=== PATIENT | female | born 1950 | race Caucasian/White ===

== ENCOUNTER 2016-10-08 09:16 | Inpatient (IN) | payer OTHER ==
[2016-09-25 12:39] VITALS: BMI 28.0
--- NOTE | 2016-09-25 13:19 | PAT Medication Instructions ---
Service Date Sep 25, 2016. Current Home Medication List Aspirin (Aspirin Ec), 325 MG PO QAM Cyanocobalamin (Vitamin B-12 Inj), 1 ML IM MONTHLY Escitalopram (Lexapro), 10 MG PO QAM Fluticasone Prop/Salmeterol (Advair Diskus 250/50 60 Dose), 1 PUFF INH BID Hydrocodone/Acetaminophen 5MG/325MG ([place] 5MG/325MG), 1 TABLET PO PRN PRN for Pain Levothyroxine Sodium (Levothyroxine Sodium), 1 TAB PO QAM Naproxen (Naprosyn), 500 MG PO BID Pantoprazole (Protonix), 40 MG PO QAM Simvastatin (Zocor), 40 MG PO QPM Zolpidem Tartrate (Ambien), 10 MG PO HS PRN for Sleep Medication Instructions For Your Scheduled Surgery Cyanocobalamin (Vitamin B-12 Inj), 1 ML IM MONTHLY (continue as directed) Aspirin (Aspirin Ec), 325 MG PO QAM (check with surgeon/family doctor for instructions) Naproxen (Naprosyn), 500 MG PO BID (check with surgeon for instructions) - Take the following medications the morning of surgery with a sip of water: Pantoprazole (Protonix), 40 MG PO QAM Levothyroxine Sodium (Levothyroxine Sodium), 1 TAB PO QAM Fluticasone Prop/Salmeterol (Advair Diskus 250/50 60 Dose), 1 PUFF INH BID Escitalopram (Lexapro), 10 MG PO QAM Hydrocodone/Acetaminophen 5MG/325MG ([place] 5MG/325MG), 1 TABLET PO PRN PRN for Pain (okay to take up to take up to 4 hours prior to surgery if needed) - Take the following medications as scheduled the night before surgery: Zolpidem Tartrate (Ambien), 10 MG PO HS PRN for Sleep (if needed) Simvastatin (Zocor), 40 MG PO QPM Fluticasone Prop/Salmeterol (Advair Diskus 250/50 60 Dose), 1 PUFF INH BID Hydrocodone/Acetaminophen 5MG/325MG ([place] 5MG/325MG), 1 TABLET PO PRN PRN for Pain (if needed) If you have any questions please call us at [phone] or [phone] or [phone]
[2016-09-25 13:55] LABS: BASO % 0.5 %; BASO ABS # 0.04 K/uL (0-0.2); COMPLETE YES; EOS % 2.1 %; HEMATOCRIT 42.3 % (37-47); IG% 0.1 %; LYMPH % 21.2 %; LYMPH ABS # 1.84 K/uL (1.2-3.4); MEAN CELL VOLUME 91.4 fL (80-100); MEAN CORPUSCULAR HEMOGLOBIN 29.6 pg (25-34); MEAN CORPUSCULAR HGB CONC 32.4 g/dl (32-36); MEAN PLATELET VOLUME 9.4 fL (7.4-10.4); MONO % 6.7 %; NEUT % 69.4 %; PLATELET COUNT 338 K/uL (130-400); RED BLOOD COUNT 4.63 M/uL (4.2-5.4); WHITE BLOOD COUNT 8.69 K/uL (4.8-10.8)
[2016-09-25 14:03] LABS: BUN/CREATININE RATIO 14.5 (10-20); CALCIUM 9.3 mg/dl (8.5-10.1); CREATININE 0.84 mg/dl (0.60-1.20); POTASSIUM 4.2 mmol/L (3.5-5.1)
--- NOTE | 2016-09-25 14:05 | DIAGNOSTIC IMAGING REPORT ---
CHEST 2 VIEWS ROUTINE CLINICAL HISTORY: Preoperative evaluation. COMPARISON STUDY: No previous studies for comparison. FINDINGS: Anterior cervical spine fusion is incidentally noted. Lung volumes are normal. There is no consolidation. There is no evidence of pulmonary edema. Cardiac size is normal. Mediastinal contours are normal. IMPRESSION: No acute cardiopulmonary findings. Electronically signed by: Gt Neri M.D. 09/25/2016 2:04 PM Dictated Date/Time: 09/25/2016 2:03 PM
[2016-09-25 14:11] LABS: URINE APPEARANCE CLEAR (CLEAR); URINE BILIRUBIN NEG (NEG); URINE COLOR YELLOW; URINE NITRITE NEG (NEG); URINE PH 5.5 (4.5-7.5); URINE SPECIFIC GRAVITY 1.008 (1.000-1.030); UROBILINOGEN NEG (NEG)
[2016-09-25 14:19] LABS: MANUAL MICROSCOPIC REQUIRED? NO; REVIEW REQ? NO
[2016-10-08] VITALS (10 sets, daily range): BP systolic 110–140; BP diastolic 54–70; PULSE 61–83; TEMP 36.5–37.1; O2SAT 84–100; Ht 160 cm; Wt 73.7 kg
[~2016-10-08] VITALS: Ht 160 cm; Wt 73.7 kg
[~2016-10-08 09:16] MED LIST: ADVIN25/60 INH; ASPI325T39 PO; ATROPINE SULFATE 0.1 MG/ML 5ML SYR IV PRN; CLINDAMYCIN 600 MG/54 ML D5W 54 ML IV SCH; CYAN3INJ IM; CeleBREX 200 MG CAP PO SCH; ESCI10TA17 PO; EpHEDrine SULFATE INJ 50 MG/ML AMP IV PRN; FENTANYL CITRATE INJ 50 MCG/1 ML 2 ML VIAL IV PRN; HYDR-5688 PO; HYDROmorphone INJ 1 MG/ML SYR IV PRN; LABETALOL HCL IV 5 MG/ML 20ML IV PRN; LACTATED RINGER'S 1000ML IV SCH; LEVO100T7 PO; MEPERIDINE HCL 25 MG/ML CARP IV PRN; NAPR-1169 PO; ONDANSETRON INJ 2 MG/ML 2 ML VIAL IV PRN; PANT40TA PO; PREGABALIN 75 MG CAP PO SCH; SIMV40TA2 PO; ZOLP10TA PO
[2016-10-08] MEDS ORDERED: FENTANYL CITRATE INJ 50 MCG/1 ML 2 ML VIAL ONE ×3 (11:26→14:26)
[2016-10-08] MEDS ORDERED: MIDAZOLAM HCL 1 MG/ML 2ML VIAL ONE (11:26)
[2016-10-08] MEDS ORDERED: HEPARIN SOD (PORCINE) 1000 UNIT/ML 10 ML VIAL ONE (11:49)
[2016-10-08] MEDS ORDERED: THROMBIN FOR SOLN 20000 UNIT KIT ONE (11:49)
[2016-10-08] MEDS ORDERED: BACITRACIN 50000 UNIT VIAL ONE (11:49)
[2016-10-08] MEDS ORDERED: THROMBIN 5000 UNITS KIT ONE (11:49)
[2016-10-08] MEDS ORDERED: BUPIVACAINE/EPINEPHRINE 0.25% 1:200,000 30 ML VIAL ONE (11:50)
--- NOTE | 2016-10-08 11:52 | History and Physical ---
History & Physical Date Oct 08, 2016. Chief Complaint LBP and bilateral leg pain History of Present Illness The patient is a 66 year old female with complaints of above who failed outpatient management including PT and ESIs. symptoms are chronic and unremitting. Pain is 8/10. Aggravated by daily activities, relieved by sitting. positive shopping cart sign. reports numbness in RLE, no weakness. no incontinence.MRI shows L3-5 spinal stenosis and mobile L4-5 degenerative spondylolisthesis. cleared by pcp Past Medical/Surgical History Medical Problems: (1) DDD (degenerative disc disease) 2. arthritis 3. depression 4. GERD 5. gout 6. COPD 7. duputryens contracture 8. hypothryoid 9. hx of skin CA 10. cervical fusion 11. B tubal ligation 12. CTR 13. hyster 14. thyroidectomy 15. knee surgery Additional History Hepatic Disease: No Endocrine Disorder: Yes Kidney Disease: No Hypertension: No Heart Disease: No Bleeding Tendencies: No Infectious Diseases: No Allergies Coded Allergies: Penicillins (Verified Allergy, Severe, DIFFICULTY BREATHING, RASH, 10/08/16 ) anything with cillin is a problem per pt Home Medications Scheduled Aspirin (Aspirin Ec), 325 MG PO QAM Cyanocobalamin (Vitamin B-12 Inj), 1 ML IM MONTHLY Escitalopram (Lexapro), 10 MG PO QAM Fluticasone Prop/Salmeterol (Advair Diskus 250/50 60 Dose), 1 PUFF INH BID Levothyroxine Sodium (Levothyroxine Sodium), 1 TAB PO QAM Naproxen (Naprosyn), 500 MG PO BID Pantoprazole (Protonix), 40 MG PO QAM Simvastatin (Zocor), 40 MG PO QPM Scheduled PRN Hydrocodone/Acetaminophen 5MG/325MG ([place] 5MG/325MG), 1 TABLET PO PRN PRN for Pain Zolpidem Tartrate (Ambien), 10 MG PO HS PRN for Sleep Physical Examination Skin: warm/dry Eyes: normal inspection, EOMI, sclerae normal Head: normocephalic, atraumatic Neck: supple, trachea midline Respiratory/Chest: lungs clear, no respiratory distress Cardiovascular: regular rate, rhythm Back: normal inspection Extremities: normal inspection, normal range of motion Neurologic/Psych: no motor/sensory deficits, alert, normal reflexes, oriented x 3 Diagnosis L3-5 stenosis with spondylolisthesis and hx smoking Plan of Treatment L3-5 decomp/PSF with smoking cessation counseled
[2016-10-08] MEDS ORDERED: HYDROmorphone INJ 2 MG/ML SYR/VIAL ONE ×2 (12:35→13:38)
[2016-10-08] MEDS ORDERED: PROPOFOL IV EMULSION 10 MG/ML 20 ML VIAL IV ONE (12:43)
[2016-10-08] MEDS ORDERED: DEXAMETHASONE SOD INJ 4 MG/ML VIAL ONE (12:43)
[2016-10-08] MEDS ORDERED: ROCURONIUM BROMIDE 10 MG/ML 5 ML VIAL ONE (12:43)
[2016-10-08] MEDS ORDERED: LIDOCAINE HCL 2% 2 ML VIAL (20MG/ML) ONE (12:43)
[2016-10-08] MEDS ORDERED: ONDANSETRON INJ 2 MG/ML 2 ML VIAL ONE ×2 (13:35→13:39)
[2016-10-08] MEDS ORDERED: KETOROLAC TROMETHAMINE 30 MG/ML VIAL ONE (13:39)
[2016-10-08] MEDS ORDERED: GLYCOPYRROLATE INJ 0.2 MG/ML VIAL ONE (13:39)
[2016-10-08] MEDS ORDERED: NEOSTIGMINE METHYLSULFATE 1 MG/ML 10ML VIAL ONE (13:39)
[2016-10-08] MEDS ORDERED: FLOSEAL HEMOSTATIC MATRIX 10ML TOP ONE (13:46)
[2016-10-08] MEDS ORDERED: ESMOLOL HCL 10 MG/ML 10 ML VIAL ONE (13:47)
--- NOTE | 2016-10-08 13:53 | [facility] Post Operative Brief Note ---
Immediate Operative Summary Operative Date Oct 08, 2016. Pre-Operative Diagnosis SPINAL STENOSIS Post-Operative Diagnosis SAME PREOP Procedure(s) Performed L3-L5 DECOMPRESSION, INSTRUMENTED FUSION, INTERBODY FUSION L4-L5 USE OF ARTERIOCYTE AND INFUSE Surgeon DR. Mere RAMÍREZ Licensed Appraiser Surgeon(s) William FRANCE PAC Estimated Blood Loss 175ML Findings diuct Specimens NONE
--- NOTE | 2016-10-08 14:14 | DIAGNOSTIC IMAGING REPORT ---
LUMBAR SPINE 2 OR 3 VIEW HISTORY:66 yearsFemaleL3-L5 DECOMPRESSION/FUSION/INTERBODY COMPARISON: None available. TECHNIQUE: Prone and cross table lateral spot fluoroscopic images of the lumbar spine were obtained utilizing 7.3 seconds of fluoroscopy time. FINDINGS: Interpretation of the films was provided after the procedure was concluded. Prior laminectomy with interbody rods and screw fixation at the L3-L5 levels. Discectomy changes are noted at L4-L5. Alignment appears satisfactory. IMPRESSION: Prior laminectomy with interbody rods and screw fixation at L3-L5. The above report was generated using voice recognition software. It may contain grammatical, syntax or spelling errors. Electronically signed by: Baljit Putnam M.D. 10/08/2016 2:12 PM Dictated Date/Time: 10/08/2016 2:10 PM
--- NOTE | 2016-10-08 14:15 | [facility] Operative Report ---
Operative Report Operative Date Oct 08, 2016. Pre-Operative Diagnosis SPINAL STENOSIS Post-Operative Diagnosis SAME PREOP Procedure(s) Performed #1 L3 and L4 laminectomies with bilateral medial facetectomies #2 L3-L4 and L5 segmental bilateral pedicle screw instrumentation #3 L3 to 5 posterior lateral fusion with infuse BMP on a collagen sponge morcellized local bone bone marrow aspirate and tricalcium phosphate #4 left L4 5 transforaminal lumbar interbody fusion with K2 M titanium interbody spacer #5 right iliac crest bone marrow aspiration and stem cell concentration application of bone graft Surgeon DR. Mere RAMÍREZ Floor Press Operator Surgeon(s) William FRANCE PAC Estimated Blood Loss 175ML Findings dict Specimens NONE Complication(s) None Description of Procedure After identification of the patient and the operative level they were brought to the OR where they underwent induction of general anesthesia. They were positioned prone on a Jens spine table with all bony prominence well-padded. Care was taken to avoid pressure on the periorbital area. The lumbosacral area was sterilely prepped and draped in the usual fashion. Antibiotics were administered, a time-out was performed, level was confirmed, and skin incision was with localized lateral fluoroscopy and a spinal needle. The skin was infiltrated with half percent Marcaine with epinephrine. I then made skin incision from the spinous process of [L2 to L5]. The dorsal fascia was incised and posterior exposure was accomplished with dissection out to the tips of the transverse processes from [L3 to L5] bilaterally. I then packed the gutters with thrombin-soaked sponges and used fluoroscopy to confirm the operative levels with markers at the operative levels. After identification of the appropriate level I placed Gelpi retractors and proceeded to perform midline decompression. Laminectomies of [L3 and L4] were performed in the midline with takedown of the intervening ligamentum flavum. I then used an osteotome to remove the medial facets at [L3-4 and L4-5]. Facet hypertrophy and degenerative changes were noted at the operative levels. I then completed decompression with Kerrison rongeurs and palpated the nerve roots were adequately decompressed at the operative levels from [L3 to 5] bilaterally. I palpated all nerve roots were decompressed adequately. I then obtained hemostasis of epidural bleeding with bipolar cautery and Surgiflo. I then proceeded to place pedicle screws bilaterally at [L3, L4, and L5] with bony anatomy confirmed to be intact with the ball-tipped feeler. I confirmed screw length, trajectory, and position with fluoroscopy. Following this I turned my attention to the [L4-5] disc space and prepared the disc space for subsequent cage introduction with a combination of burt and curettes. I determined cage size with paddle distractors. I then packed a titanium mesh interbody cage with bone graft mixture. Bone graft consisted of morselized local bone from laminectomy bone as well as bone graft district gauger saturated with stem cell concentrate. I obtained stem cell concentrate using a stem cell concentration system after aspiration of bone marrow from the right iliac crest via a separate stab incisions with a GateGurushidi needle. I then applied this to bone graft district gauger. I then inserted the appropriately sized cage into the disc space and confirmed stability. Fluoroscopy confirmed appropriate cage placement. I then lowered the Rex frame to restore lordosis. I applied rods and end caps bilaterally with final tightening of all caps. I irrigated with bacitracin solution. I then decorticated the transverse processes bilaterally at the operative levels from [L3 to 5] as well as facet joints with a high-speed bur. I then packed the lateral gutters and facets with the bone graft mixture consisting of: infuse BMP and a collagen sponge, tricalcium phosphate logs, stem cell concentrate, morcellized local bone, and bone graft district gauger. I then confirmed hemostasis and closed in a layered fashion over a DAPHNE drain. All sponge and needle counts were correct in the case. I attest to the content of the Intraoperative Record and any orders documented therein. Any exceptions are noted below.
[2016-10-08] MEDS ORDERED: SODIUM CHLORIDE 0.9% 1000ML 1,000 ML IV SCH (14:23)
[2016-10-08] MEDS ORDERED: NALOXONE HCL 0.4 MG/1 ML VIAL/CARP IV PRN ×2 (14:30)
[2016-10-08] MEDS ORDERED: LORAZEPAM INJ 0.5 MG in SYRINGE 0 ML IV PRN (14:30)
[2016-10-08] MEDS ORDERED: ACETAMINOPHEN 500 MG TAB PO PRN (14:30)
[2016-10-08] MEDS ORDERED: ONDANSETRON INJ 2 MG/ML 2 ML VIAL IV PRN (14:30)
[2016-10-08] MEDS ORDERED: PROMETHAZINE HCL INJ 12.5 MG in SODIUM CHLORIDE 0.9% 50ML 50 ML IV PRN (14:30)
[2016-10-08] MEDS ORDERED: LORAZEPAM 0.5 MG TAB PO PRN (14:30)
[2016-10-08] MEDS ORDERED: BISACODYL 10 MG SUPP PR PRN (14:30)
[2016-10-08] MEDS ORDERED: SOD PHOSPHATE/SOD BIPHOSPHATE ENEMA 132 ML BTL PR PRN (14:30)
[2016-10-08] MEDS ORDERED: ALUMINUM/MAGNESIUM SUSP 30 ML UDC PO PRN (14:30)
[2016-10-08] MEDS ORDERED: ACETAMINOPHEN IV 100 ML IV PRN (14:30)
[2016-10-08] MEDS ORDERED: HYDROmorphone HCL 0.5MG/ML 50 ML CASSETTE IV PRN (14:30)
[2016-10-08] MEDS ORDERED: hydrOXYzine HCL 25 MG TAB PO PRN (14:30)
[2016-10-08] MEDS ORDERED: FAMOTIDINE 20 MG TAB PO PRN (14:30)
[2016-10-08] MEDS ORDERED: METOCLOPRAMIDE HCL INJ 5 MG/ML 2 ML VIAL IV PRN (14:30)
[2016-10-08] MEDS ORDERED: MAGNESIUM HYDROXIDE SUSP 30 ML UDC PO PRN (14:30)
[2016-10-08] MEDS ORDERED: HYDROmorphone HCL 0.5MG/ML 50 ML CASSETTE ONE (14:38)
--- NOTE | 2016-10-08 15:17 | Anesthesiology Progress Note ---
Anesthesia Post Op Note Date & Time Oct 08, 2016 at 15:17 Vital Signs Pain Intensity: 5 Vital Signs Past 12 Hours Date Time Temp Pulse Resp B/P (MAP) Pulse Ox O2 Delivery O2 Flow Rate FiO2 10/08/16 15:00 64 12 119/46 93 Nasal Cannula 4 10/08/16 14:50 73 28 80/60 (62) 93 Nasal Cannula 4 10/08/16 14:40 66 17 81/59 (64) 94 Oxymask 4 10/08/16 14:30 62 16 80/57 (60) 95 Oxymask 8 10/08/16 14:20 75 15 91/50 (68) 94 Oxymask 10 10/08/16 14:10 73 19 111/84 99 Oxymask 10 10/08/16 14:00 36.4 87 14 98/67 (77) 97 Oxymask 10 10/08/16 09:48 36.7 83 18 140/63 94 Room Air Notes Mental Status: alert / awake / arousable, participated in evaluation Pt Amnestic to Procedure: Yes Nausea / Vomiting: adequately controlled Pain: adequately controlled Airway Patency, RR, SpO2: stable & adequate BP & HR: stable & adequate Hydration State: stable & adequate Anesthetic Complications: no major complications apparent
[2016-10-08] MEDS: LACTATED RINGER'S 1000ML 1,000 ML IV SCH (18:50)
[2016-10-08] MEDS: DEXAMETHASONE INJ 6 MG in SYRINGE 0 ML IV SCH (18:54)
[2016-10-08] MEDS: LEVOTHYROXINE 100 MCG TAB PO SCH (18:54)
[2016-10-08] MEDS: CLINDAMYCIN IV 600 MG in DEXTROSE 5% 50ML 50 ML IV SCH (18:54)
[2016-10-08] MEDS: DOCUSATE SODIUM/SENNA 50/8.6MG TAB PO SCH (20:37)
[2016-10-08] MEDS: SIMVASTATIN 40 MG TAB PO SCH (20:37)
[2016-10-08] MEDS: FLUTICASONE/SALMETEROL 250/50 (ADVAIR) 14 PUFF/1 INHALER INH SCH (20:37)
[2016-10-09] VITALS (8 sets, daily range): BP systolic 114–135; BP diastolic 56–66; PULSE 63–74; TEMP 36.4–37; O2SAT 90–97
[2016-10-09] MEDS: DEXAMETHASONE INJ 6 MG in SYRINGE 0 ML IV SCH ×2 (02:18→10:27)
[2016-10-09] MEDS: CLINDAMYCIN IV 600 MG in DEXTROSE 5% 50ML 50 ML IV SCH (02:18)
[2016-10-09] MEDS: LACTATED RINGER'S 1000ML 1,000 ML IV SCH (03:11)
[2016-10-09 05:51] LABS: BASO % 0.1 %; BASO ABS # 0.01 K/uL (0-0.2); COMPLETE YES; HEMATOCRIT 33.9 % (37-47); IG% 0.3 %; LYMPH % 5.6 %; LYMPH ABS # 0.89 K/uL (1.2-3.4); MEAN CELL VOLUME 91.9 fL (80-100); MEAN CORPUSCULAR HEMOGLOBIN 29.3 pg (25-34); MEAN CORPUSCULAR HGB CONC 31.9 g/dl (32-36); MONO % 3.5 %; NEUT % 90.5 %; PLATELET COUNT 322 K/uL (130-400); RED BLOOD COUNT 3.69 M/uL (4.2-5.4); WHITE BLOOD COUNT 15.85 K/uL (4.8-10.8)
[2016-10-09] MEDS ORDERED: HYDROmorphone INJ 0.5 MG/0.5 ML SYR IV PRN (06:00)
[2016-10-09] MEDS ORDERED: DC PCA ONE (06:00)
[2016-10-09 06:19] LABS: BUN/CREATININE RATIO 19.8 (10-20); CALCIUM 8.4 mg/dl (8.5-10.1); CREATININE 0.64 mg/dl (0.60-1.20); POTASSIUM 4.9 mmol/L (3.5-5.1)
--- NOTE | 2016-10-09 06:56 | Clinical Documentation Query ---
KARO Slater : CLINICAL DOCUMENTATION QUERY Patient is a 66 year old female who on 10/08 underwent elective posterior lumbar decompression and fusion. Preoperative hemoglobin and hematocrit were 13.7 g/dl and 42.3%. POD #1, repeat values are 10.8 g/dl and 33.9%. EBL for the procedure was 175 ml's with subsequently documented losses of 270 ml's to date. Net I/O is positive at this time for 1,655 ml's. As clinically appropriate, consider documentation as suggested below. Thank you. In your clinical opinion is this patient being managed for: ( ) Acute blood loss and hemodilutional anemia ( ) Other explanation of clinical findings (Please Explain) ( ) Unable to determine (Please Define) ( ) Need to Discuss ( ) Not Agree The medical record reflects the following clinical findings, treatment, and risk factors. Clinical Indicators: As above Treatment: Serial hematology, I/O including drain outputs. Risk Factors: IVF administration, acute perioperative blood losses. Please clarify and document your clinical opinion in the progress notes and discharge summary. Terms such as "probable", "suspected", "likely", "questionable", "possible", or "still to be ruled out" are acceptable. IF IN AGREEMENT, YOU MUST DOCUMENT ABOVE DIAGNOSTIC STATEMENT IN DAILY PROGRESS NOTES AND DISCHARGE SUMMARY. This document is not part of the patient's record. Thank You, Kevin Fernández, DIMITRI [phone]
[2016-10-09] MEDS: LEVOTHYROXINE 100 MCG TAB PO SCH (07:21)
[2016-10-09] MEDS ORDERED: NURSING DECISION MEDICATION ORDER SCH ×2 (07:30→17:30)
--- NOTE | 2016-10-09 07:31 | Anesthesiology Progress Note ---
Anesthesia Post Op Note Date & Time Oct 09, 2016 at 07:31 Vital Signs Vital Signs Past 12 Hours Date Time Temp Pulse Resp B/P (MAP) Pulse Ox O2 Delivery O2 Flow Rate FiO2 10/09/16 03:42 36.4 69 16 127/66 (86) 93 Nasal Cannula 2.0 10/09/16 00:00 Nasal Cannula 2.0 10/08/16 23:36 36.6 70 16 127/69 (88) 98 Nasal Cannula 2.0 10/08/16 22:39 100 Nasal Cannula 2.0 10/08/16 22:35 84 Room Air 10/08/16 21:58 91 Room Air Notes Mental Status: alert / awake / arousable, participated in evaluation Pt Amnestic to Procedure: Yes Nausea / Vomiting: adequately controlled Pain: adequately controlled Airway Patency, RR, SpO2: stable & adequate BP & HR: stable & adequate Hydration State: stable & adequate Anesthetic Complications: no major complications apparent
[2016-10-09] MEDS: OXYCODONE HCL IR 5 MG TAB (IMMEDIATE RELEASE) PO PRN ×4 (07:58→23:09)
[2016-10-09] MEDS: FLUTICASONE/SALMETEROL 250/50 (ADVAIR) 14 PUFF/1 INHALER INH SCH ×2 (08:29→20:59)
[2016-10-09] MEDS: ESCITALOPRAM OXALATE 10 MG TAB PO SCH (08:30)
[2016-10-09] MEDS: PANTOprazole SOD 40 MG TAB PO SCH (08:30)
[2016-10-09] MEDS: ASPIRIN 325 MG ECTAB PO SCH (08:30)
--- NOTE | 2016-10-09 09:34 | Orthopedic Progress Note ---
Orthopedic Progress Note Date of Service Oct 09, 2016. Subjective Post OP Day: 1 Reports: feeling well, pain controlled w PO medications, Denies: complaints, chest pain, SOB, nausea / vomiting, light headedness, calf pain, using COMMUNITY NURSE Objective calves soft nontender, N/V intact, dressing C/D/I, A&O x3, hemovac drainage Date Time Temp Pulse Resp B/P (MAP) Pulse Ox O2 Delivery O2 Flow Rate FiO2 10/09/16 08:42 95 Nasal Cannula 2.0 10/09/16 07:45 93 Room Air 10/09/16 07:30 36.5 63 16 114/56 (75) 95 Nasal Cannula 2.0 10/09/16 03:42 36.4 69 16 127/66 (86) 93 Nasal Cannula 2.0 10/09/16 00:00 Nasal Cannula 2.0 10/08/16 23:36 36.6 70 16 127/69 (88) 98 Nasal Cannula 2.0 10/08/16 22:39 100 Nasal Cannula 2.0 10/08/16 22:35 84 Room Air 10/08/16 21:58 91 Room Air 10/08/16 19:10 36.6 76 18 114/59 (77) 96 Nasal Cannula 4.0 10/08/16 18:00 36.7 61 16 118/70 (86) 97 Nasal Cannula 4.0 10/08/16 17:00 36.6 63 18 110/64 (79) 98 Nasal Cannula 4.0 10/08/16 16:30 36.5 63 16 117/66 (83) 98 Nasal Cannula 4.0 10/08/16 16:05 37.1 66 16 123/54 (77) 96 Nasal Cannula 4.0 10/08/16 16:05 Nasal Cannula 4.0 10/08/16 16:05 96 Nasal Cannula 4.0 10/08/16 15:45 63 14 133/44 97 Nasal Cannula 4 10/08/16 15:30 65 15 122/46 96 Nasal Cannula 4 10/08/16 15:15 36.2 63 15 122/41 96 Nasal Cannula 4 10/08/16 15:00 64 12 119/46 93 Nasal Cannula 4 10/08/16 14:50 73 28 80/60 (62) 93 Nasal Cannula 4 10/08/16 14:40 66 17 81/59 (64) 94 Oxymask 4 10/08/16 14:30 62 16 80/57 (60) 95 Oxymask 8 10/08/16 14:20 75 15 91/50 (68) 94 Oxymask 10 10/08/16 14:10 73 19 111/84 99 Oxymask 10 10/08/16 14:00 36.4 87 14 98/67 (77) 97 Oxymask 10 10/08/16 09:48 36.7 83 18 140/63 94 Room Air Laboratory Results 24 Hours: Test 10/09/16 05:38 White Blood Count 15.85 K/uL Red Blood Count 3.69 M/uL Hemoglobin 10.8 g/dL Hematocrit 33.9 % Mean Corpuscular Volume 91.9 fL Mean Corpuscular Hemoglobin 29.3 pg Mean Corpuscular Hemoglobin Concent 31.9 g/dl Platelet Count 322 K/uL Mean Platelet Volume 9.0 fL Neutrophils (%) (Auto) 90.5 % Lymphocytes (%) (Auto) 5.6 % Monocytes (%) (Auto) 3.5 % Eosinophils (%) (Auto) 0.0 % Basophils (%) (Auto) 0.1 % Neutrophils # (Auto) 14.35 K/uL Lymphocytes # (Auto) 0.89 K/uL Monocytes # (Auto) 0.55 K/uL Eosinophils # (Auto) 0.00 K/uL Basophils # (Auto) 0.01 K/uL Assessment & Plan Assessment: stable Plan: drain, PT, SCDs, home tomorrow
--- NOTE | 2016-10-09 09:40 | Discharge Instructions ---
Discharge Instructions Date of Service Oct 09, 2016. Admission Reason for Admission: Spinal Stenosis Discharge Discharge Diagnosis / Problem: same Discharge Goals Goal(s): Decrease discomfort Activity Recommendations Activity Limitations: per Instructions/Follow-up section . Instructions / Follow-Up Instructions / Follow-Up ACTIVITY RECOMMENDATIONS: SELF CARE INSTRUCTIONS AFTER THORACIC/LUMBAR FUSIONS 1. You may walk to your tolerance. It is good exercise for your legs and back. Expect some back and intermittent leg aches and pains. 2. You may perform "counter-top" level activities (make a sandwich, marlo with a project, etc.). 3. No bending or lifting of more than 10 pounds or back twisting of any nature (roll like a log when turning in bed). 4. You may ride in a car for 20-30 minutes at a time. No driving until after your first visit with your doctor. 5. Frequent changes of position and restricting sitting to 30 minutes at a time will help limit the amount of back spasms and stiffness you may experience. 6. You may discontinue the use of ambulatory aids (cane, crutches, etc.) once your strength and confidence allow. 7. You may backside grinder the shower and let water strike your incision when you arrive home at least once daily. Do not take a tub bath, sit in a hot tub or go into a swimming pool until after your first recheck in the office. SPECIAL CARE INSTRUCTIONS: VERY IMPORTANT TO READ AND REVIEW A. Your surgical incision has been closed with a cosmetic suture under the skin that will dissolve in about 6 weeks. In 14 days, you can use a pair of clean scissors and cut the suture that is left outside of the skin at the ends of your incision. 1. The small skin tapes can be removed 7 days after surgery if they have not fallen off by that point. 2. You may keep the wound open to air as much as possible to promote healing after post-op day number 5 unless told otherwise by your doctor. 3. If you think the wound looks like it is becoming infected (redness or worsening drainage) and/or you are experiencing fever, chill or worsening back pain and muscle spasms, contact the office so that we may evaluate you as soon as possible. B. Complications are uncommon, but please contact us if you have any signs or symptoms of: 1. wound infection (fever higher than 102.5 degrees F, redness, separation of wound, drainage, or increasing pain from the incision) 2. blood clots in legs (pain, swelling, redness and warmth in legs) 3. urinary tract infection (fever higher than 102.5 degrees F, burning upon urination or increased frequency of urination) 4. nerve problems (inability to walk on your toes or heels, numbness, loss of bowel or bladder control) 5. any other symptoms that concern you C. Please call the office at if you have any concerns or questions about your operation or recovery. D. No smoking! Smoking drastically decreases the chance of a solid fusion. E. Do not take any anti-inflammatory medications (Indocin, Advil, Motrin, Aspirin, Naprosyn, etc.) as these may inhibit the chance of a solid fusion. Tylenol is okay to take for pain. MANAGING PAIN AFTER SPINAL SURGERY 1. Narcotic medication is intended for short-term use and will be provided for surgical pain. Surgical pain usually lasts for a period of 4-6 weeks. Narcotic medication includes Percocet, Vicodin, Darvocet, Tylenol #3 or Lortab. 2. Longer-term pain is more appropriately treated with non-narcotic medication such as Tylenol ES. 3. Muscle spasm is not appropriately treated with narcotics. Muscle relaxers such as Soma, Flexeril or Skelaxin can be used along with Tylenol ES. 4. Remember that we all live with some "aches and pains". This is not unusual or uncommon after an injury or as we get older. a. Back pain is expected and may include muscle spasms for 4 to 6 weeks after surgery. The pain should gradually improve. If the pain worsens for no apparent reason, please contact the office. b. Intermittent leg pain may also be experienced and should not be concerned about unless it worsens for no apparent reason. If so, please contact the office. 5. We will provide appropriate medication within the normal guidelines of their prescribed use. We will also be very cautious and aware of potential abuse and extended duration of patients' medication needs. a. Pain medications are for your comfort and to assist with sleep and rest so that the tissue can heal. They are not provided in order to return to normal activity and should not be used through the day. To do so or worsening pain at night can result from ongoing tissue damage and development of tolerance to the prescribed medicine. 6. Please allow 2-3 days to process refills. Prescriptions will not be mailed but must be picked up at the office. FOLLOW UP VISIT: Keep your scheduled follow-up appointment. Any questions, please call the office at . Current Hospital Diet Patient's current hospital diet: Regular Diet Discharge Diet Recommended Diet: Regular Diet Procedures Procedures Performed: #1 L3 and L4 laminectomies with bilateral medial facetectomies #2 L3-L4 and L5 segmental bilateral pedicle screw instrumentation #3 L3 to 5 posterior lateral fusion with infuse BMP on a collagen sponge morcellized local bone bone marrow aspirate and tricalcium phosphate #4 left L4 5 transforaminal lumbar interbody fusion with K2 M titanium interbody spacer #5 right iliac crest bone marrow aspiration and stem cell concentration application of bone graft Pending Studies Studies pending at discharge: no Medical Emergencies . Who to Call and When: Medical Emergencies: If at any time you feel your situation is an emergency, please call 911 immediately. . Non-Emergent Contact Non-Emergency issues call your: Surgeon . "Provider Documentation" section prepared by Oswaldo Vallecillo. . VTE Core Measure Inpt VTE Proph given/why not?: Hayes Gotti, SCD's [place] Drug Monitoring Program Search Results: patient reviewed within database, no issues identified ( checked by PAPattie)
[2016-10-09] MEDS ORDERED: RXC5 PO (09:41)
[2016-10-09] MEDS ORDERED: COUGH DROP (SUGAR FREE) LOZ 24 LOZ/1 BOX PO PRN (17:45)
[2016-10-09] MEDS: DOCUSATE SODIUM/SENNA 50/8.6MG TAB PO SCH (20:59)
[2016-10-09] MEDS: SIMVASTATIN 40 MG TAB PO SCH (20:59)
[2016-10-10] MEDS: LEVOTHYROXINE 100 MCG TAB PO SCH (05:21)
[2016-10-10] MEDS: POLYETHYLENE (MIRALAX) 17 GM PACK PO SCH ×2 (05:27→12:00)
[2016-10-10 07:30] VITALS: BP 122/48; PULSE 62; TEMP 36.5; O2SAT 93
[2016-10-10] MEDS: ESCITALOPRAM OXALATE 10 MG TAB PO SCH (09:13)
[2016-10-10] MEDS: FLUTICASONE/SALMETEROL 250/50 (ADVAIR) 14 PUFF/1 INHALER INH SCH (09:13)
[2016-10-10] MEDS: ASPIRIN 325 MG ECTAB PO SCH (09:13)
[2016-10-10] MEDS: PANTOprazole SOD 40 MG TAB PO SCH (09:13)
[2016-10-10] MEDS: OXYCODONE HCL IR 5 MG TAB (IMMEDIATE RELEASE) PO PRN ×2 (09:14→14:19)
[2016-10-10 09:15] VITALS: O2SAT 93
--- NOTE | 2016-10-10 12:01 | Discharge Summary ---
Orthopedic Discharge Summary Admission Date/Reason Oct 08, 2016 at 12:00 Spinal Stenosis. Discharge Date/Disposition Oct 10, 2016 Home Diagnosis Principal Diagnosis: same Procedure(s) Performed lumbar fusion L3-5 Medication Reconciliation New Medications: Oxycodone HCl (Oxycodone HCl) 5 Mg Tab 5-10 MG PO Q4H PRN for Moderate - severe pain, #90 TAB Continued Medications: Aspirin (Aspirin Ec) 325 Mg Tab 325 MG PO QAM Cyanocobalamin (Vitamin B-12 Inj) Inj 1 ML IM MONTHLY, #1 VIAL Escitalopram (Lexapro) 10 Mg Tab 10 MG PO QAM, TAB Fluticasone Prop/Salmeterol (Advair Diskus 250/50 60 Dose) 1 Ea Aerp 1 PUFF INH BID, INHALER Levothyroxine Sodium (Levothyroxine Sodium) 100 Mcg Tab 1 TAB PO QAM for 90 Days, #90 TAB 3 Refills Pantoprazole (Protonix) 40 Mg Tab 40 MG PO QAM, #30 Simvastatin (Zocor) 40 Mg Tab 40 MG PO QPM, TAB Zolpidem Tartrate (Ambien) 10 Mg Tab 10 MG PO HS PRN for Sleep, TAB Discontinued Medications: Hydrocodone/Acetaminophen 5MG/325MG ([place] 5MG/325MG) Tab 1 TABLET PO PRN PRN for Pain, TAB PRN PAIN Naproxen (Naprosyn) 500 Mg Tab 500 MG PO BID, TAB Admission Physical Exam As per Admitting History & Physical. Hospital Course She was admitted for elective lumbar surgery, did well, was transferred to floor , remained stable. After PT her ambulation improved POD2, she tolerated diet, pain was controlled, HD stable, and desired d/c to home with home services. Discharge Instructions Please refer to the electronic Patient Visit Report (Discharge Instructions) for additional information.
[2016-10-10 13:17] VITALS: BP 122/48; PULSE 62; TEMP 36.5; O2SAT 93
== END 2016-10-10 14:30 | disposition home health service (06) | DRG 460 ==
LOC: C.OR 09:16 → C.3E 12:00 → ENRESERV 15:41
PROVIDERS: ADMIT Orthopaedic Surgery Orthopaedic Surgery of the Spine; ATTEND Orthopaedic Surgery Orthopaedic Surgery of the Spine
PROC: 3E0U0GB Introduction of Recombinant Bone Morphogenetic Protein into Joints, Open Approach (ICD-10-PCS; principal; 2016-10-08 09:30)
PROC: 0SG00AJ Fusion of Lumbar Vertebral Joint with Interbody Fusion Device, Posterior Approach, Anterior Column, Open Approach (ICD-10-PCS; principal; 2016-10-08 09:30)
PROC: 0SG1071 Fusion of 2 or more Lumbar Vertebral Joints with Autologous Tissue Substitute, Posterior Approach, Posterior Column, Open Approach (ICD-10-PCS; principal; 2016-10-08 09:30)
PROC: 0SB20ZZ Excision of Lumbar Vertebral Disc, Open Approach (ICD-10-PCS; principal; 2016-10-08 09:30)
DX: M48.06 Spinal stenosis, lumbar region (principal); M43.16 Spondylolisthesis, lumbar region; J45.909 Unspecified asthma, uncomplicated; E89.0 Postprocedural hypothyroidism; K21.9 Gastro-esophageal reflux disease without esophagitis; M19.90 Unspecified osteoarthritis, unspecified site; F41.9 Anxiety disorder, unspecified; I65.29 Occlusion and stenosis of unspecified carotid artery; F32.9 Major depressive disorder, single episode, unspecified; F17.210 Nicotine dependence, cigarettes, uncomplicated; Z98.1 Arthrodesis status; Z79.1 Long term (current) use of non-steroidal anti-inflammatories (NSAID); Z79.51 Long term (current) use of inhaled steroids; Z79.82 Long term (current) use of aspirin; Z79.891 Long term (current) use of opiate analgesic; Z79.899 Other long term (current) drug therapy

== ENCOUNTER 2016-10-13 12:09 | Inpatient (IN) | payer OTHER ==
[~2016-10-13] VITALS: Ht 160 cm; Wt 73.7 kg
[~2016-10-13 12:09] MED LIST changes: -ATROPINE SULFATE 0.1 MG/ML 5ML SYR IV PRN; -CLINDAMYCIN 600 MG/54 ML D5W 54 ML IV SCH; -CeleBREX 200 MG CAP PO SCH; -EpHEDrine SULFATE INJ 50 MG/ML AMP IV PRN; -FENTANYL CITRATE INJ 50 MCG/1 ML 2 ML VIAL IV PRN; -HYDR-5688 PO; -HYDROmorphone INJ 1 MG/ML SYR IV PRN; -LABETALOL HCL IV 5 MG/ML 20ML IV PRN; -LACTATED RINGER'S 1000ML IV SCH; -MEPERIDINE HCL 25 MG/ML CARP IV PRN; -NAPR-1169 PO; -ONDANSETRON INJ 2 MG/ML 2 ML VIAL IV PRN; -PREGABALIN 75 MG CAP PO SCH; +RXC5 PO
[2016-10-13] MEDS ORDERED: ACETAMINOPHEN 325 MG TAB PO PRN (15:45)
[2016-10-13] MEDS ORDERED: ONDANSETRON INJ 2 MG/ML 2 ML VIAL IV PRN (15:45)
[2016-10-13] MEDS ORDERED: ZOLPIDEM TARTRATE 10 MG TAB PO PRN (15:45)
[2016-10-13] MEDS ORDERED: POLYETHYLENE (MIRALAX) 17 GM PACK PO PRN (15:45)
[2016-10-13] MEDS ORDERED: ALUMINUM/MAGNESIUM/SIMETH (MAALOX MAX) 30 ML UDC PO PRN (15:45)
[2016-10-13] MEDS ORDERED: KETOROLAC TROMETHAMINE 15 MG/ML VIAL IV. PRN (15:45)
[2016-10-13] MEDS ORDERED: ALBUTEROL 0.083% NEBU SOLN 3 ML VIAL INH PRN (16:00)
[2016-10-13 16:28] LABS: HEMATOCRIT 27.9 % (37-47); MEAN CELL VOLUME 89.7 fL (80-100); MEAN CORPUSCULAR HEMOGLOBIN 31.2 pg (25-34); MEAN CORPUSCULAR HGB CONC 34.8 g/dl (32-36); MEAN PLATELET VOLUME 8.5 fL (7.4-10.4); PLATELET COUNT 332 K/uL (130-400); RED BLOOD COUNT 3.11 M/uL (4.2-5.4); WHITE BLOOD COUNT 8.67 K/uL (4.8-10.8)
[2016-10-13 16:39] LABS: PARTIAL THROMBOPLASTIN RATIO 1.1; PROTHROMBIN TIME (PATIENT) 10.9 SECONDS (9.0-12.0)
[2016-10-13 17:11] VITALS: BP 128/65; PULSE 64; TEMP 36.6; O2SAT 96; Ht 160 cm; Wt 73.7 kg
--- NOTE | 2016-10-13 17:58 | History and Physical ---
History & Physical Date & Time of Service: Oct 13, 2016 at 17:18 Chief Complaint: FEVER Primary Care Physician: Heydi Patterson PA-C History of Present Illness Source: patient 66 y/o F Hx Hypothyroidism, COPD, spinal degenerative disease. Pt underwent posterior lumbar decompression and fusion 10/08/16. She was D/Cd on 10/09 and states that due to narcotic use she had fallen out of bed on 10/10. She has had progressive pain since that time and feared that she had reinjured her back. On 10/11 she developed fevers and then checked into [facility] one day later. A fever of up to 101 was confirmed at [facility] although no source was identified. A CT fo the lumbar spine did not display and fluid collections or other evidence of infection. She denies a SOB, a productive cough, diarrhea or headache. She has had some dysuria however her UA was negative. She has and elevated CRP and persistent low-grade fevers. She was therefore transferred to [facility] for further evaluation and assessment by her surgeon. She complains only of back pain at the time of admission. She is able to mobilize independently. Past Medical/Surgical History 1) Spinal degenerative disease 2) Hypothyroidism 3) COPD 4) Tobacco abuse 5) GERD Surgical 1) Lumbar decompression 2016 2) Cervical discectomy 2005 3) Cholecystectomy 4) Carpal tunnel 5) L knee arthroscopy Family History Reviewed - noncontributory Social History Smokes one pack QD Smoking Status: Current Every Day Smoker Immunizations History of Influenza Vaccine: Unknown History of Tetanus Vaccine?: Unknown History of Pneumococcal: Unknown History of Hepatitis B Vaccine: Unknown Multi-Drug Resistant Organisms History of MDRO: No Allergies Coded Allergies: Penicillins (Verified Allergy, Severe, DIFFICULTY BREATHING, RASH, 10/08/16 ) anything with cillin is a problem per pt Home Medications Scheduled Aspirin (Aspirin Ec), 325 MG PO QAM Cyanocobalamin (Vitamin B-12 Inj), 1 ML IM MONTHLY Escitalopram (Lexapro), 10 MG PO QAM Fluticasone Prop/Salmeterol (Advair Diskus 250/50 60 Dose), 1 PUFF INH BID Levothyroxine Sodium (Levothyroxine Sodium), 1 TAB PO QAM Pantoprazole (Protonix), 40 MG PO QAM Simvastatin (Zocor), 40 MG PO QPM Scheduled PRN Oxycodone HCl (Oxycodone HCl), 5-10 MG PO Q4H PRN for Moderate - severe pain Zolpidem Tartrate (Ambien), 10 MG PO HS PRN for Sleep Review of Systems Constitutional: + fever, No chills, No sweats Eyes: No worsening of vision, No eye pain ENT: No hearing loss, No unusual epistaxis, No nasal symptoms Respiratory: No cough, No sputum, No wheezing, No shortness of breath Cardiovascular: No chest pain, No orthopnea, No PND Abdomen: No pain, No nausea, No vomiting Musculoskeletal: + joint pain (moderate to severe back pain) Genitourinary - Female: + dysuria, No urinary frequency, No urinary urgency Neurologic: No memory loss, No paralysis Psychiatric: No depression symptoms Endocrine: No fatigue Hematologic / Lymphatic: No abnormal bleeding/bruising Integumentary: No rash Allergic / Immunologic: No environmental allergies Physical Exam General Appearance: WD/WN, no apparent distress Head: normocephalic Eyes: normal inspection ENT: normal ENT inspection, pharynx normal Neck: supple, no JVD Respiratory/Chest: chest non-tender, lungs clear, normal breath sounds Cardiovascular: regular rate, rhythm, no edema, no gallop Abdomen/GI: normal bowel sounds, non tender, soft Back: + pertinent finding (Surgical site is clean as is drain site - no inflammation or exudate is present - there is no significant pain to palpation to palpation of the affected area) Extremities/Musculoskelatal: normal inspection, no calf tenderness, normal capillary refill Neurologic/Psych: head counselor II-XII nml as tested, no motor/sensory deficits, alert Skin: normal color, + pertinent finding (Surgical site is clean as is drain site - no inflammation or exudate is present ) Diagnostics Laboratory Results Results Past 24 Hours Test 10/13/16 16:02 Range/Units White Blood Count 8.67 4.8-10.8 K/uL Red Blood Count 3.11 4.2-5.4 M/uL Hemoglobin 9.7 12.0-16.0 g/dL Hematocrit 27.9 37-47 % Mean Corpuscular Volume 89.7 80-100 fL Mean Corpuscular Hemoglobin 31.2 25-34 pg Mean Corpuscular Hemoglobin Concent 34.8 32-36 g/dl RDW Standard Deviation 47.8 36.4-46.3 fL RDW Coefficient of Variation 14.5 11.5-14.5 % Platelet Count 332 130-400 K/uL Mean Platelet Volume 8.5 7.4-10.4 fL Prothrombin Time 10.9 9.0-12.0 SECONDS Prothromb Time International Ratio 1.0 0.9-1.1 Activated Partial Thromboplast Time 29.2 21.0-31.0 SECONDS Partial Thromboplastin Ratio 1.[address] lumbar with contrast: L3-5 posterior fusion - no collections/hematoma or evidence of infection CXR: clear Impression Assessment and Plan 66 y/o F Hx Hypothyroidism, COPD, spinal degenerative disease. Pt underwent posterior lumbar decompression and fusion 10/08/16. She was D/Cd on 10/09 and states that due to narcotic use she had fallen out of bed on 10/10. She has had progressive pain since that time and feared that she had reinjured her back. On 10/11 she developed fevers and then checked into [facility] one day later. A fever of up to 101 was confirmed at [facility] although no source was identified. A CT fo the lumbar spine did not display and fluid collections or other evidence of infection. She denies a SOB, a productive cough, diarrhea or headache. She has had some dysuria however her UA was negative. She has and elevated CRP and persistent low-grade fevers. She was therefore transferred to [facility] for further evaluation and assessment by her surgeon. She complains only of back pain at the time of admission. She is able to mobilize independently. 1) Back pain and fevers post lumbar fusion 10/08 - Pt will be evaluated by orthopedics. We will begin empiric antibiotics assuming a spinal source as her fevers have been present for 3 days. She will receive narcotics for pain control. Will defer to ortho regarding an MRI as there is no clinical evidence or CT findings consistent with an abscess at present. We will consult ID. 2) Hypothyroidism - cont Synthroid 3) COPD - tobacco use - counseling reg smoking cessation to be provided - cont inhalers - PRN Albuterol ordered Full code - Heparin prophylaxis - total time for this admit including review of labs, meds, imaging - outside records - discussion with pt and ER attending at [facility] - 35 min Level of Care Med/Surg Resuscitation Status FULL RESUSCITATION VTE Prophylaxis VTE Risk Assessment Done? Y/N: Yes Risk Level: Moderate Given or contraindicated: Unfractionated heparin SQ
[2016-10-13 18:05] LABS: CREATININE 0.63 mg/dl (0.60-1.20)
[2016-10-13] MEDS: HYDROmorphone INJ 0.5 MG/0.5 ML SYR IV PRN (20:07)
[2016-10-13] MEDS: SIMVASTATIN 40 MG TAB PO SCH ×2 (20:08→22:45)
[2016-10-13] MEDS: FLUTICASONE/SALMETEROL 250/50 (ADVAIR) 14 PUFF/1 INHALER INH SCH (20:08)
[2016-10-13] MEDS: MAGNESIUM HYDROXIDE SUSP 30 ML UDC PO PRN (21:30)
[2016-10-13] MEDS: HEPARIN SOD 5000 UNIT/0.5 ML CARP SQ SCH (22:11)
[2016-10-13 22:53] VITALS: BP 145/56; PULSE 82; TEMP 37; O2SAT 94
[2016-10-14] MEDS: HYDROmorphone INJ 0.5 MG/0.5 ML SYR IV PRN ×3 (01:08→22:44)
[2016-10-14] MEDS ORDERED: VANCOMYCIN INJ 1,000 MG in SODIUM CHLORIDE 0.9% 250ML 250 ML IV STA (03:44)
[2016-10-14] MEDS ORDERED: VANCOMYCIN INJ 1,850 MG in SODIUM CHLORIDE 0.9% 500ML 500 ML IV SCH (04:00)
[2016-10-14] MEDS ORDERED: VANCOMYCIN CONSULT ACTIVE PRN (04:00)
[2016-10-14] MEDS ORDERED: CEFTRIAXONE SOD INJ 2,000 MG in DEXTROSE 5% 50ML 50 ML IV SCH (05:00)
[2016-10-14] MEDS ORDERED: NURSING DECISION MEDICATION ORDER SCH ×2 (05:15→18:45)
[2016-10-14] MEDS: LEVOTHYROXINE 100 MCG TAB PO SCH (05:38)
[2016-10-14] MEDS: HEPARIN SOD 5000 UNIT/0.5 ML CARP SQ SCH ×3 (05:40→22:41)
[2016-10-14 05:47] LABS: HEMATOCRIT 29.1 % (37-47); MEAN CELL VOLUME 89.3 fL (80-100); MEAN CORPUSCULAR HEMOGLOBIN 29.4 pg (25-34); MEAN PLATELET VOLUME 8.4 fL (7.4-10.4); PLATELET COUNT 383 K/uL (130-400); RED BLOOD COUNT 3.26 M/uL (4.2-5.4); WHITE BLOOD COUNT 9.21 K/uL (4.8-10.8)
[2016-10-14 06:21] LABS: BUN/CREATININE RATIO 18.7 (10-20); CALCIUM 7.8 mg/dl (8.5-10.1); CREATININE 0.58 mg/dl (0.60-1.20); MAGNESIUM 2.4 mg/dl (1.8-2.4); POTASSIUM 3.9 mmol/L (3.5-5.1)
[2016-10-14 07:44] VITALS: BP 152/66; PULSE 78; TEMP 37.2; O2SAT 93
--- NOTE | 2016-10-14 08:43 | Clinical Documentation Query ---
Dr. LEONARD GREENFIELD : CLINICAL DOCUMENTATION QUERIES QUERY 1 OF 2 Patient is a 66 year old female admitted for evaluation of fevers and progressive pain since undergoing L3-5 lumbar fusion on 10/08. Documentation includes "We will begin empiric antibiotics assuming a spinal source as her fevers have been present for 3 days". As appropriate, consider documentation as suggested below as the above implies a postoperative infection but cannot be interpreted to mean so by the professional panel cutter. In your clinical opinion is this patient being managed for: (x) (Possible) Postoperative surgical site infection - found to not be the case w/ further investigation. ( ) Other explanation of clinical findings (Please Explain) ( ) Unable to determine (Please Define) ( ) Need to Discuss ( ) Not Agree The medical record reflects the following clinical findings, treatment, and risk factors. Clinical Indicators: As above Treatment: Radiology, labs, empiric antibiotics, admission, pending orthopedic consultation Risk Factors: Recent spinal surgery QUERY 2 OF 2 Hemoglobin and hematocrit on admission of 9.7 g/dl and 27.9%. Preoperative values (pre 10/08/16) were 13.7 g/dl and 43.3%. EBL for the procedure was 175ml's with subsequently documented losses totaling an additional 518 ml's. As appropriate, consider documentation as suggested below to capture the severity of illness associated with this important clinical diagnosis. Thank you. In your clinical opinion is this patient being managed for: (X) Acute blood loss anemia ( ) Other explanation of clinical findings (Please Explain) ( ) Unable to determine (Please Define) ( ) Need to Discuss ( ) Not Agree The medical record reflects the following clinical findings, treatment, and risk factors. Clinical Indicators: As above Treatment: Serial hematology, I/O Risk Factors: Posterior lumbar spinal fusion Please clarify and document your clinical opinion in the progress notes and discharge summary. Terms such as "probable", "suspected", "likely", "questionable", "possible", or "still to be ruled out" are acceptable. IF IN AGREEMENT, YOU MUST DOCUMENT ABOVE DIAGNOSTIC STATEMENT IN DAILY PROGRESS NOTES AND DISCHARGE SUMMARY. This document is not part of the patient's record. Thank You, Kevin Fernández, RN [phone]
[2016-10-14] MEDS: FLUTICASONE/SALMETEROL 250/50 (ADVAIR) 14 PUFF/1 INHALER INH SCH ×2 (08:54→20:37)
[2016-10-14] MEDS: ASPIRIN 325 MG ECTAB PO SCH (08:54)
[2016-10-14] MEDS: ESCITALOPRAM OXALATE 10 MG TAB PO SCH (08:54)
[2016-10-14] MEDS: PANTOprazole SOD 40 MG TAB PO SCH (08:54)
[2016-10-14] MEDS: MAGNESIUM HYDROXIDE SUSP 30 ML UDC PO PRN (08:59)
--- NOTE | 2016-10-14 09:02 | Family Medicine Progress Note ---
Progress Note Date of Service Oct 14, 2016. Subjective Pt evaluation today including: conversation w/ patient, physical exam, chart review, lab review Pain: complains of abdominal pain Voiding: no voiding problems 66-year-old female with a past medical history of hypothyroidism, COPD, spinal degenerative disease status post lumbar decompression and fusion on 10/08/16 presented after a fall on 10/10. She was noted to have a temperature at [facility] and transferred to [facility] for further evaluation. she has been afebrile overnight. Denies any fevers or chills but complains of abdominal distention with diffuse tenderness. She hasn't had a bowel movement since her surgery which is likely contributing to her abdominal pain. Denies any urinary complaints Constitutional: No fever, No chills Eyes: No worsening of vision ENT: No hearing loss Respiratory: No cough, No sputum Cardiovascular: No chest pain Abdomen: + pain, + constipation, No nausea, No vomiting Musculoskeletal: + joint pain (back pain) Female : No dysuria Neurologic: No memory loss Psychiatric: No depression symptoms Heme: No abnormal bleeding/bruising Medications Current Inpatient Medications Medications (Trade) Dose Ordered Sig/Carlito Route Start Time Stop Time Status Last Admin Dose Admin Heparin Sodium (Porcine) (Heparin Sq 5000 Unit/0.5ml) 5,000 unit Q8 SQ 10/13/16 22:00 11/12/16 21:59 10/14/16 13:24 5,000 UNIT Acetaminophen (Tylenol Tab) 650 mg Q4H PRN PO 10/13/16 15:45 11/12/16 15:44 Al Hydrox/Mg Hydrox/Simethicone (Maalox Max Susp) 15 ml Q4H PRN PO 10/13/16 15:45 11/12/16 15:44 Magnesium Hydroxide (Milk Of Magnesia Susp) 30 ml Q6H PRN PO 10/13/16 15:45 11/12/16 15:44 10/14/16 08:59 30 ML Polyethylene (Miralax Powder Packet) 17 gm DAILY PRN PO 10/13/16 15:45 11/12/16 15:44 Ondansetron HCl (Zofran Inj) 4 mg Q6H PRN IV 10/13/16 15:45 11/12/16 15:44 Aspirin (Ecotrin Tab) 325 mg QAM PO 10/14/16 09:00 11/13/16 08:59 10/14/16 08:54 325 MG Escitalopram Oxalate (Lexapro Tab) 10 mg QAM PO 10/14/16 09:00 11/13/16 08:59 10/14/16 08:54 10 MG Salmeterol Xinafoate/ Fluticasone (Advair Diskus 250/50 Inh) 1 puff BID INH 10/13/16 21:00 11/12/16 20:59 10/14/16 08:54 1 PUFF Levothyroxine Sodium (Synthroid Tab) 100 mcg DAILYBB PO 10/14/16 06:00 11/13/16 05:59 10/14/16 05:38 100 MCG Pantoprazole Sodium (Protonix Tab) 40 mg QAM PO 10/14/16 09:00 11/13/16 08:59 10/14/16 08:54 40 MG Simvastatin (Zocor Tab) 40 mg QPM PO 10/13/16 21:00 11/12/16 20:59 10/13/16 22:45 40 MG Zolpidem Tartrate (Ambien Tab) 10 mg HS PRN PO 10/13/16 15:45 11/12/16 15:44 Hydromorphone HCl (Dilaudid Inj) 0.5 mg Q3H PRN IV 10/13/16 15:45 10/27/16 15:44 10/14/16 08:56 0.5 MG Ketorolac Tromethamine (Toradol Inj) 15 mg HS PRN IV. 10/13/16 15:45 10/18/16 15:44 Albuterol Sulfate (Ventolin 0.083% 2.5MG/3ML Neb) 2.5 mg Q4H PRN INH 10/13/16 16:00 11/12/16 15:59 Vancomycin HCl (Consult) 1 ea UD PRN N/A 10/14/16 04:00 11/13/16 03:59 Vancomycin HCl 1300 mg/Sodium Chloride 276 ml @ 125 mls/hr Q12H IV 10/14/16 16:00 11/25/16 15:59 Ceftriaxone Sodium 2000 mg/ Dextrose 70 ml @ 100 mls/hr Q24H IV 10/14/16 08:00 11/25/16 07:59 10/14/16 09:50 100 MLS/HR Senna (Senokot Tab) 17.2 mg QAM PO 10/15/16 09:00 11/14/16 08:59 Objective Vital Signs Date Time Temp Pulse Resp B/P (MAP) Pulse Ox O2 Delivery O2 Flow Rate FiO2 10/14/16 14:51 36.6 86 18 138/61 (86) 95 Room Air 10/14/16 07:44 37.2 78 16 152/66 (94) 93 Room Air 10/14/16 07:40 Room Air 10/13/16 22:53 37.0 82 20 145/56 (85) 94 Room Air 10/13/16 20:05 Room Air 10/13/16 17:11 36.6 64 20 128/65 96 Room Air Physical Exam General Appearance: WD/WN, + mild distress Eyes: normal inspection ENT: hearing grossly normal Neck: supple Respiratory/Chest: chest non-tender, lungs clear, normal breath sounds, no respiratory distress, no accessory muscle use Cardiovascular: regular rate, rhythm Abdomen: normal bowel sounds, + distended, + tenderness (diffusely) Extremities: no pedal edema, no calf tenderness Neurologic/Psychiatric: alert, normal mood/affect, oriented x 3 Skin: normal color Laboratory Results 10/14/16 05:19 10/14/16 05:19 Test 10/14/16 05:19 Red Blood Count 3.26 M/uL (4.2-5.4) Mean Corpuscular Volume 89.3 fL (80-100) Mean Corpuscular Hemoglobin 29.4 pg (25-34) Mean Corpuscular Hemoglobin Concent 33.0 g/dl (32-36) RDW Standard Deviation 47.5 fL (36.4-46.3) RDW Coefficient of Variation 14.4 % (11.5-14.5) Mean Platelet Volume 8.4 fL (7.4-10.4) Anion Gap 6.0 mmol/L (3-11) Est Creatinine Clear Calc Drug Dose 93.0 ml/min Estimated GFR () 112.1 Estimated GFR (Non- 96.7 BUN/Creatinine Ratio 18.7 (10-20) Calcium Level 7.8 mg/dl (8.5-10.1) Magnesium Level 2.4 mg/dl (1.8-2.4) LUMBAR SPINE 2 OR 3 VIEWS HISTORY:66 yearsFemaleeval lumbar fusion s/p fall (recent surgery) COMPARISON: Lumbar spine CT 10/12/2016 TECHNIQUE: Frontal, lateral and coned-down lateral radiographs of the lumbar spine FINDINGS: Prior laminectomy at L3-L4 with posterior interbody rods and screw fixation at L3-L5 and prior discectomy at L4-L5. No evidence of hardware complication. Midline skin candi are seen posteriorly. There is unchanged 3 mm anterolisthesis L4 on L5. Alignment is otherwise satisfactory. Surgical clips are seen within the right upper abdomen. Bowel gas pattern is nonobstructive. There is atherosclerosis of the aorta. IMPRESSION: 1. Prior laminectomy at L3-L4 with posterior interbody salome and screw fixation at L3-L5. 2. 3 mm anterolisthesis of L4 on L5 appears unchanged from comparison CT. The above report was generated using voice recognition software. It may contain grammatical, syntax or spelling errors. Electronically signed by: Baljit Putnam M.D. 10/14/2016 1:17 PM Dictated Date/Time: 10/14/2016 1:12 PM KUB CLINICAL HISTORY: Abdominal distention. History of lumbar fusion. Constipation. COMPARISON STUDY: No previous studies for comparison. FINDINGS: There are postsurgical changes of a lumbar spinal fusion. There are surgical clips in the right upper quadrant consistent with a prior cholecystectomy. There are minimally dilated left mid abdominal small bowel loops measuring up to 38 mm in diameter. There is gas present within the colon. The findings are suggestive of a mild ileus. IMPRESSION: Suspected mild ileus. Electronically signed by: Stanley Dutton M.D. 10/14/2016 1:16 PM Dictated Date/Time: 10/14/2016 1:15 PM Assessment and Plan 66-year-old female with a past medical history of hypothyroidism, COPD, spinal degenerative disease status post lumbar decompression and fusion on 10/08/16 presented after a fall on 10/10. She was noted to have a temperature at [facility] and transferred to [facility] for further evaluation. Fall likely secondary to Grogginess by pain medication Lumbar x-ray : 1. Prior laminectomy at L3-L4 with posterior interbody salome and screw fixation at L3-L5. 2. 3 mm anterolisthesis of L4 on L5 appears unchanged from comparison CT. - appreciate recommendations by orthopedics - pain control with tylenol/ibuprofen/localized heat application - use narcotics very sparingly Constipation: Likely secondary to post surgical ileus/ narcotic pain med use KUB: Suspected mild ileus. - Continue MiraLAX, senna, mag citrate Febrile illness - had been afebrile overnight with no leucocytosis - CXR and UA done at outside hospital unremarkable - Currently on vancomycin and Rocephin Hypothyroidism: Continue Synthroid GERD: -Continue Protonix COPD/ history of smoking - Incentive spirometry - albuterol as needed - Smoking cessation counseling DVT prophylaxis SCDs Heparin SQ Full code Dispo: MedSurg Resident Tracking Resident Involvement: Resident Care Provided Care Provided: Adult Hospital Medicine History Resident Physician Supervision Note: I was present with Dr. Rasheed during the history and exam. I discussed the case with the resident and agree with the findings and plan as documented in the note. Any exceptions or clarifications are listed here. Resting in bed w/ minimal pain except for abdominal discomfort from constipation. Reports no fever since yesterday. Last BM ~4 days ago. General Appearance: WD/WN, no apparent distress, obese Respiratory: chest non-tender, lungs clear, normal breath sounds, no respiratory distress Cardiovascular: normal peripheral pulses, regular rate, rhythm, no edema, no murmur Gastrointestinal: normal bowel sounds, soft, no organomegaly, tenderness Assessment/Plan 66 y/o female h/o COPD, hypothyroidism w/ recent lumbar decompression/fusion on 10.08 now w/ fever and pain Constipation - multifactorial 2/2 surgical intervention, narcotic medication, chronic underlying - intensify bowel regimen, t/c enema if no improvement Febrile illness without apparent source - continue broad spectrum abx at present , reassess clinically in AM - t/c d/c of abx 2/2 no apparent source or fever in AM Fall and lower back pain - ortho aware and recommendations appreciated - pain control (avoid narcotics) Hypothyroidism - continue synthroid GERD - continue omeprazole COPD hx - albuterol PRN, encourage IS use FULL CODE
[2016-10-14] MEDS: CEFTRIAXONE SOD INJ 2,000 MG in DEXTROSE 5% 50ML 50 ML IV SCH (09:50)
--- NOTE | 2016-10-14 10:02 | Clinical Documentation Query ---
Dr. [facility] : CLINICAL DOCUMENTATION QUERIES QUERY 1 OF 2 Patient is a 66 year old female admitted for evaluation of fevers and progressive pain since undergoing L3-5 lumbar fusion on 10/08. Documentation includes "We will begin empiric antibiotics assuming a spinal source as her fevers have been present for 3 days". As appropriate, consider documentation as suggested below as the above implies a postoperative infection but cannot be interpreted to mean so by the professional integration specialist. In your clinical opinion is this patient being managed for: ( ) (Possible) Postoperative surgical site infection ( ) Other explanation of clinical findings (Please Explain) ( ) Unable to determine (Please Define) ( ) Need to Discuss ( ) Not Agree The medical record reflects the following clinical findings, treatment, and risk factors. Clinical Indicators: As above Treatment: Radiology, labs, empiric antibiotics, admission, pending orthopedic consultation Risk Factors: Recent spinal surgery QUERY 2 OF 2 Hemoglobin and hematocrit on admission of 9.7 g/dl and 27.9%. Preoperative values (pre 10/08/16) were 13.7 g/dl and 43.3%. EBL for the procedure was 175ml's with subsequently documented losses totaling an additional 518 ml's. As appropriate, consider documentation as suggested below to capture the severity of illness associated with this important clinical diagnosis. Thank you. In your clinical opinion is this patient being managed for: ( ) Acute blood loss anemia ( ) Other explanation of clinical findings (Please Explain) ( ) Unable to determine (Please Define) ( ) Need to Discuss ( ) Not Agree The medical record reflects the following clinical findings, treatment, and risk factors. Clinical Indicators: As above Treatment: Serial hematology, I/O Risk Factors: Posterior lumbar spinal fusion Please clarify and document your clinical opinion in the progress notes and discharge summary. Terms such as "probable", "suspected", "likely", "questionable", "possible", or "still to be ruled out" are acceptable. IF IN AGREEMENT, YOU MUST DOCUMENT ABOVE DIAGNOSTIC STATEMENT IN DAILY PROGRESS NOTES AND DISCHARGE SUMMARY. This document is not part of the patient's record. Thank You, Kevin Fernández, RN [phone]
[2016-10-14] MEDS ORDERED: SENNA 8.6 MG TAB PO ONE (10:56)
[2016-10-14] MEDS ORDERED: MAGNESIUM CITRATE 296 ML/BTL PO ONE (12:15)
--- NOTE | 2016-10-14 12:28 | Orthopedic Consultation ---
Orthopedic Consultation Date of Consultation: Oct 14, 2016. Attending Physician: Heath Carnes MD Reason for Consultation: Recent lumbar fusion with fall and low-grade fevers. History of Present Illness Ms. Martin is a pleasant 66-year-old female that underwent lumbar decompression and instrumented fusion L3 through [address] Vallecillo on October 08. She was discharged home on October 10. That evening she took oxycodone for pain control became quite groggy and lightheaded and fell out of bed in the conductor and engineer hours of October 11. She had increased back pain since. She reports low-grade temperatures started on October 12. She does not recall how high it went. Then due to the back pain she went to [facility] on October 13 for further evaluation was transferred here. Upon examination today she is in no obvious distress. She has been afebrile since her admission here. She reports lower back pain only. No radicular complaints. She has been up and into the addy throughout the weekend with the assistance of a walker. Her largest complaint is constipation. She is passing flatus but has not had a bowel movement since surgery. She feels she is quite bloated. Social History Smoking Status: Current Every Day Smoker Allergies Coded Allergies: Penicillins (Verified Allergy, Severe, DIFFICULTY BREATHING, RASH, 10/08/16 ) anything with cillin is a problem per pt Home Medications Scheduled Aspirin (Aspirin Ec), 325 MG PO QAM Cyanocobalamin (Vitamin B-12 Inj), 1 ML IM MONTHLY Escitalopram (Lexapro), 10 MG PO QAM Fluticasone Prop/Salmeterol (Advair Diskus 250/50 60 Dose), 1 PUFF INH BID Levothyroxine Sodium (Levothyroxine Sodium), 1 TAB PO QAM Pantoprazole (Protonix), 40 MG PO QAM Simvastatin (Zocor), 40 MG PO QPM Scheduled PRN Oxycodone HCl (Oxycodone HCl), 5-10 MG PO Q4H PRN for Moderate - severe pain Zolpidem Tartrate (Ambien), 10 MG PO HS PRN for Sleep Current Inpatient Medications Current Inpatient Medications Medications (Trade) Dose Ordered Sig/Carlito Route Start Time Stop Time Status Last Admin Dose Admin Heparin Sodium (Porcine) (Heparin Sq 5000 Unit/0.5ml) 5,000 unit Q8 SQ 10/13/16 22:00 11/12/16 21:59 10/14/16 05:40 5,000 UNIT Acetaminophen (Tylenol Tab) 650 mg Q4H PRN PO 10/13/16 15:45 11/12/16 15:44 Al Hydrox/Mg Hydrox/Simethicone (Maalox Max Susp) 15 ml Q4H PRN PO 10/13/16 15:45 11/12/16 15:44 Magnesium Hydroxide (Milk Of Magnesia Susp) 30 ml Q6H PRN PO 10/13/16 15:45 11/12/16 15:44 10/14/16 08:59 30 ML Polyethylene (Miralax Powder Packet) 17 gm DAILY PRN PO 10/13/16 15:45 11/12/16 15:44 Ondansetron HCl (Zofran Inj) 4 mg Q6H PRN IV 10/13/16 15:45 11/12/16 15:44 Aspirin (Ecotrin Tab) 325 mg QAM PO 10/14/16 09:00 11/13/16 08:59 10/14/16 08:54 325 MG Escitalopram Oxalate (Lexapro Tab) 10 mg QAM PO 10/14/16 09:00 11/13/16 08:59 10/14/16 08:54 10 MG Salmeterol Xinafoate/ Fluticasone (Advair Diskus 250/50 Inh) 1 puff BID INH 10/13/16 21:00 11/12/16 20:59 10/14/16 08:54 1 PUFF Levothyroxine Sodium (Synthroid Tab) 100 mcg DAILYBB PO 10/14/16 06:00 11/13/16 05:59 10/14/16 05:38 100 MCG Pantoprazole Sodium (Protonix Tab) 40 mg QAM PO 10/14/16 09:00 11/13/16 08:59 10/14/16 08:54 40 MG Simvastatin (Zocor Tab) 40 mg QPM PO 10/13/16 21:00 11/12/16 20:59 10/13/16 22:45 40 MG Zolpidem Tartrate (Ambien Tab) 10 mg HS PRN PO 10/13/16 15:45 11/12/16 15:44 Hydromorphone HCl (Dilaudid Inj) 0.5 mg Q3H PRN IV 10/13/16 15:45 10/27/16 15:44 10/14/16 08:56 0.5 MG Ketorolac Tromethamine (Toradol Inj) 15 mg HS PRN IV. 10/13/16 15:45 10/18/16 15:44 Albuterol Sulfate (Ventolin 0.083% 2.5MG/3ML Neb) 2.5 mg Q4H PRN INH 10/13/16 16:00 11/12/16 15:59 Vancomycin HCl (Consult) 1 ea UD PRN N/A 10/14/16 04:00 11/13/16 03:59 Vancomycin HCl 1300 mg/Sodium Chloride 276 ml @ 125 mls/hr Q12H IV 10/14/16 16:00 11/25/16 15:59 Ceftriaxone Sodium 2000 mg/ Dextrose 70 ml @ 100 mls/hr Q24H IV 10/14/16 08:00 11/25/16 07:59 10/14/16 09:50 100 MLS/HR Senna (Senokot Tab) 17.2 mg QAM PO 10/15/16 09:00 11/14/16 08:59 Magnesium Citrate (Citrate Of Magnesia Soln) 296 ml DAILY PRN PO 10/14/16 12:15 11/13/16 12:14 UNV Physical Exam Date Time Temp Pulse Resp B/P (MAP) Pulse Ox O2 Delivery O2 Flow Rate FiO2 10/14/16 07:44 37.2 78 16 152/66 (94) 93 Room Air 10/14/16 07:40 Room Air 10/13/16 22:53 37.0 82 20 145/56 (85) 94 Room Air 10/13/16 20:05 Room Air 10/13/16 17:11 36.6 64 20 128/65 96 Room Air Lumbar spine. Brittanie are intact. There is modest edema. There is no purulent drainage. No erythema. Musky skeletal is neurovascular intact bilateral lower extremity. JEFFREY hose intact benefit. Nontender bilaterally. Strength is intact bilateral lower extremities. Laboratory Results Last 24 Hours Test 10/13/16 15:47 10/13/16 16:02 10/14/16 05:19 Creatinine 0.63 mg/dl 0.58 mg/dl Est Creatinine Clear Calc Drug Dose 85.6 ml/min 93.0 ml/min Estimated GFR () 109.1 112.1 Estimated GFR (Non- 94.1 96.7 White Blood Count 8.67 K/uL 9.21 K/uL Red Blood Count 3.11 M/uL 3.26 M/uL Hemoglobin 9.7 g/dL 9.6 g/dL Hematocrit 27.9 % 29.1 % Mean Corpuscular Volume 89.7 fL 89.3 fL Mean Corpuscular Hemoglobin 31.2 pg 29.4 pg Mean Corpuscular Hemoglobin Concent 34.8 g/dl 33.0 g/dl RDW Standard Deviation 47.8 fL 47.5 fL RDW Coefficient of Variation 14.5 % 14.4 % Platelet Count 332 K/uL 383 K/uL Mean Platelet Volume 8.5 fL 8.4 fL Prothrombin Time 10.9 SECONDS Prothromb Time International Ratio 1.0 Activated Partial Thromboplast Time 29.2 SECONDS Partial Thromboplastin Ratio 1.1 Sodium Level 137 mmol/L Potassium Level 3.9 mmol/L Chloride Level 102 mmol/L Carbon Dioxide Level 29 mmol/L Anion Gap 6.0 mmol/L Blood Urea Nitrogen 11 mg/dl BUN/Creatinine Ratio 18.7 Random Glucose 81 mg/dl Calcium Level 7.8 mg/dl Magnesium Level 2.4 mg/dl Assessment & Plan Ambulate ad alma. DVT prophylaxis in the form of teds and SCDs. She is also currently on heparin subcutaneous. At this point in time, we will obtain x- rays of lumbar spine assess her hardware. And relates to her constipation I ordered a KUB as well as ordered mag citrate. I fell this is majority of her pain currently. In regards to her low-grade temperature, I have very low suspicion for active infection/abscess. Workup thus far has been negative for active infection/abscess. We'll continue with very light/limited pain control. She does seem to be sensitive to narcotics.
--- NOTE | 2016-10-14 13:17 | DIAGNOSTIC IMAGING REPORT ---
KUB CLINICAL HISTORY: Abdominal distention. History of lumbar fusion. Constipation. COMPARISON STUDY: No previous studies for comparison. FINDINGS: There are postsurgical changes of a lumbar spinal fusion. There are surgical clips in the right upper quadrant consistent with a prior cholecystectomy. There are minimally dilated left mid abdominal small bowel loops measuring up to 38 mm in diameter. There is gas present within the colon. The findings are suggestive of a mild ileus. IMPRESSION: Suspected mild ileus. Electronically signed by: Stanley Dutton M.D. 10/14/2016 1:16 PM Dictated Date/Time: 10/14/2016 1:15 PM
--- NOTE | 2016-10-14 13:18 | DIAGNOSTIC IMAGING REPORT ---
LUMBAR SPINE 2 OR 3 VIEWS HISTORY:66 yearsFemaleeval lumbar fusion s/p fall (recent surgery) COMPARISON: Lumbar spine CT 10/12/2016 TECHNIQUE: Frontal, lateral and coned-down lateral radiographs of the lumbar spine FINDINGS: Prior laminectomy at L3-L4 with posterior interbody rods and screw fixation at L3-L5 and prior discectomy at L4-L5. No evidence of hardware complication. Midline skin candi are seen posteriorly. There is unchanged 3 mm anterolisthesis L4 on L5. Alignment is otherwise satisfactory. Surgical clips are seen within the right upper abdomen. Bowel gas pattern is nonobstructive. There is atherosclerosis of the aorta. IMPRESSION: 1. Prior laminectomy at L3-L4 with posterior interbody salome and screw fixation at L3-L5. 2. 3 mm anterolisthesis of L4 on L5 appears unchanged from comparison CT. The above report was generated using voice recognition software. It may contain grammatical, syntax or spelling errors. Electronically signed by: Baljit Putnam M.D. 10/14/2016 1:17 PM Dictated Date/Time: 10/14/2016 1:12 PM
[2016-10-14 14:51] VITALS: BP 138/61; PULSE 86; TEMP 36.6; O2SAT 95
[2016-10-14] MEDS: VANCOMYCIN INJ 1,300 MG in SODIUM CHLORIDE 0.9% 250ML 250 ML IV SCH (16:27)
[2016-10-14] MEDS ORDERED: COUGH DROP (SUGAR FREE) LOZ 24 LOZ/1 BOX PO PRN (19:00)
[2016-10-14 20:31] VITALS: TEMP 37.4
[2016-10-14] MEDS: SIMVASTATIN 40 MG TAB PO SCH (20:37)
[2016-10-14 22:55] VITALS: BP 93/60; PULSE 86; TEMP 37.2; O2SAT 95
[2016-10-15] MEDS: VANCOMYCIN INJ 1,300 MG in SODIUM CHLORIDE 0.9% 250ML 250 ML IV SCH ×2 (04:33→15:36)
[2016-10-15] MEDS: HYDROmorphone INJ 0.5 MG/0.5 ML SYR IV PRN (04:33)
[2016-10-15] MEDS: LEVOTHYROXINE 100 MCG TAB PO SCH (05:30)
[2016-10-15] MEDS: HEPARIN SOD 5000 UNIT/0.5 ML CARP SQ SCH ×3 (05:33→21:11)
[2016-10-15 07:25] VITALS: BP 104/68; PULSE 74; TEMP 37.1; O2SAT 92
--- NOTE | 2016-10-15 07:47 | Family Medicine Progress Note ---
Progress Note Date of Service Oct 15, 2016. Subjective Pt evaluation today including: conversation w/ patient, physical exam Pain: continues to complain about back pain PO Intake: good Voiding: no voiding problems No fevers/ chills overnight. had BM X3 after bowel regimen which helped with discomfort. still has back pain Constitutional: No fever, No chills Eyes: No worsening of vision ENT: No hearing loss Respiratory: No cough Breast: No breast lump Abdomen: No pain, No nausea Musculoskeletal: + joint pain (back pain) Female : No dysuria Neurologic: No memory loss Psychiatric: No depression symptoms Medications Current Inpatient Medications Medications (Trade) Dose Ordered Sig/Carlito Route Start Time Stop Time Status Last Admin Dose Admin Heparin Sodium (Porcine) (Heparin Sq 5000 Unit/0.5ml) 5,000 unit Q8 SQ 10/13/16 22:00 11/12/16 21:59 10/15/16 13:44 5,000 UNIT Acetaminophen (Tylenol Tab) 650 mg Q4H PRN PO 10/13/16 15:45 11/12/16 15:44 Al Hydrox/Mg Hydrox/Simethicone (Maalox Max Susp) 15 ml Q4H PRN PO 10/13/16 15:45 11/12/16 15:44 Magnesium Hydroxide (Milk Of Magnesia Susp) 30 ml Q6H PRN PO 10/13/16 15:45 11/12/16 15:44 10/14/16 08:59 30 ML Polyethylene (Miralax Powder Packet) 17 gm DAILY PRN PO 10/13/16 15:45 11/12/16 15:44 Ondansetron HCl (Zofran Inj) 4 mg Q6H PRN IV 10/13/16 15:45 11/12/16 15:44 Aspirin (Ecotrin Tab) 325 mg QAM PO 10/14/16 09:00 11/13/16 08:59 10/15/16 08:05 325 MG Escitalopram Oxalate (Lexapro Tab) 10 mg QAM PO 10/14/16 09:00 11/13/16 08:59 10/15/16 08:05 10 MG Salmeterol Xinafoate/ Fluticasone (Advair Diskus 250/50 Inh) 1 puff BID INH 10/13/16 21:00 11/12/16 20:59 10/15/16 08:05 1 PUFF Levothyroxine Sodium (Synthroid Tab) 100 mcg DAILYBB PO 10/14/16 06:00 11/13/16 05:59 10/15/16 05:30 100 MCG Pantoprazole Sodium (Protonix Tab) 40 mg QAM PO 10/14/16 09:00 11/13/16 08:59 10/15/16 08:04 40 MG Simvastatin (Zocor Tab) 40 mg QPM PO 10/13/16 21:00 11/12/16 20:59 10/14/16 20:37 40 MG Zolpidem Tartrate (Ambien Tab) 10 mg HS PRN PO 10/13/16 15:45 11/12/16 15:44 Hydromorphone HCl (Dilaudid Inj) 0.5 mg Q3H PRN IV 10/13/16 15:45 10/27/16 15:44 10/15/16 04:33 0.5 MG Ketorolac Tromethamine (Toradol Inj) 15 mg HS PRN IV. 10/13/16 15:45 10/18/16 15:44 Albuterol Sulfate (Ventolin 0.083% 2.5MG/3ML Neb) 2.5 mg Q4H PRN INH 10/13/16 16:00 11/12/16 15:59 Vancomycin HCl (Consult) 1 ea UD PRN N/A 10/14/16 04:00 11/13/16 03:59 Vancomycin HCl 1300 mg/Sodium Chloride 276 ml @ 125 mls/hr Q12H IV 10/14/16 16:00 11/25/16 15:59 10/15/16 15:36 125 MLS/HR Ceftriaxone Sodium 2000 mg/ Dextrose 70 ml @ 100 mls/hr Q24H IV 10/14/16 08:00 11/25/16 07:59 10/15/16 08:04 100 MLS/HR Senna (Senokot Tab) 17.2 mg QAM PO 10/15/16 09:00 11/14/16 08:59 10/15/16 08:05 17.2 MG Menthol (Nice Sonja) 1 sonja PRN PRN PO 10/14/16 19:00 11/13/16 18:59 10/14/16 19:10 1 SONJA Objective Vital Signs Date Time Temp Pulse Resp B/P (MAP) Pulse Ox O2 Delivery O2 Flow Rate FiO2 10/15/16 15:45 36.5 79 20 95/59 (71) 96 Room Air 10/15/16 15:30 Room Air 10/15/16 15:09 81 97 10/15/16 08:00 Room Air 10/15/16 07:25 37.1 74 17 104/68 (80) 92 Room Air 10/14/16 23:50 Room Air 10/14/16 22:55 37.2 86 20 93/60 (71) 95 Room Air 10/14/16 20:31 37.4 Physical Exam General Appearance: WD/WN, no apparent distress Eyes: normal inspection ENT: normal ENT inspection, hearing grossly normal Neck: supple Respiratory/Chest: + wheezing (scattered) Cardiovascular: regular rate, rhythm Abdomen: normal bowel sounds, soft Extremities: normal inspection, no pedal edema Neurologic/Psychiatric: alert, normal mood/affect, oriented x 3 Skin: normal color Laboratory Results 10/15/16 07:10 Test 10/15/16 07:10 10/15/16 15:27 Est Creatinine Clear Calc Drug Dose 101.8 ml/min Estimated GFR () 115.5 Estimated GFR (Non- 99.6 Vancomycin Level Trough 12.0 mcg/ml (SEE COMMENT) Assessment and Plan 66-year-old female with a past medical history of hypothyroidism, COPD, spinal degenerative disease status post lumbar decompression and fusion on 10/08/16 presented after a fall on 10/10. She was noted to have a temperature at [facility] and transferred to [facility] for further evaluation. Fall likely secondary to Grogginess by pain medication Lumbar x-ray : 1. Prior laminectomy at L3-L4 with posterior interbody salome and screw fixation at L3-L5. 2. 3 mm anterolisthesis of L4 on L5 appears unchanged from comparison CT. - appreciate recommendations by orthopedics - pain control with tylenol/ibuprofen/localized heat application - use narcotics very sparingly - PT/OT ordered- recommend inpatient rehab- referral made to [facility] Constipation: Likely secondary to post surgical ileus/ narcotic pain med use- resolved KUB: Suspected mild ileus. - Continue MiraLAX as needed Febrile illness - had been afebrile overnight with no leucocytosis - CXR and UA done at outside hospital unremarkable - Dc vancomycin and Rocephin Hypothyroidism: Continue Synthroid GERD: -Continue Protonix COPD/ history of smoking - Incentive spirometry - albuterol as needed - Smoking cessation counseling DVT prophylaxis SCDs Heparin SQ Full code Dispo: MedSur Resident Tracking Resident Involvement: Resident Care Provided Care Provided: Adult [facility] Medicine History Resident Physician Supervision Note: I was present with Dr. Rasheed during the history and exam. I discussed the case with the resident and agree with the findings and plan as documented in the note. Any exceptions or clarifications are listed here. Pt resting in bed, complaining of persistent lower back pain - has refused dilaudid 2/2 worsening constipation and tylenol doesn't help enough with the pain. She is excited but worried about getting OOB w/ PT. Her initial fall was caused by uncontrolled pain getting her up at night and her losing her balance. General Appearance: mild distress, obese Respiratory: chest non-tender, lungs clear, normal breath sounds, no respiratory distress Cardiovascular: normal peripheral pulses, regular rate, rhythm, no murmur Gastrointestinal: normal bowel sounds, non tender, soft, no organomegaly Assessment/Plan 66 y/o female h/o COPD, hypothyroidism w/ recent lumbar decompression/fusion on 10.08 now w/ fever and pain Constipation - multifactorial 2/2 surgical intervention, narcotic medication, chronic underlying -improved, continue bowel regimen Febrile illness without apparent source - d/c abx and observe - no apparent nidus of infection on evaluation, no WBC count, asymptomatic Fall and lower back pain - ortho aware and recommendations appreciated - pain control (adding 2.5/325 percocet) - PT rec's rehab stay as OP for strengthening and fxn Hypothyroidism - continue synthroid GERD - continue omeprazole COPD hx - albuterol PRN, encourage IS use FULL CODE
[2016-10-15 07:52] LABS: CREATININE 0.53 mg/dl (0.60-1.20)
[2016-10-15] MEDS: CEFTRIAXONE SOD INJ 2,000 MG in DEXTROSE 5% 50ML 50 ML IV SCH (08:04)
[2016-10-15] MEDS: PANTOprazole SOD 40 MG TAB PO SCH (08:04)
[2016-10-15] MEDS: ESCITALOPRAM OXALATE 10 MG TAB PO SCH (08:05)
[2016-10-15] MEDS: SENNA 8.6 MG TAB PO SCH (08:05)
[2016-10-15] MEDS: FLUTICASONE/SALMETEROL 250/50 (ADVAIR) 14 PUFF/1 INHALER INH SCH ×2 (08:05→21:02)
[2016-10-15] MEDS: ASPIRIN 325 MG ECTAB PO SCH (08:05)
--- NOTE | 2016-10-15 12:25 | Consultant Recommendations ---
Team Member Recommendations Date of Service Oct 15, 2016. Team Member Recommendations She reports minimal current LBP. No leg pain. Her xrays show stable hardware. On examination the wound is benign, clean without redness. Neuro exam is stable in LEs. I recommend PT, limited narcotics use, and rehab consideration.
[2016-10-15 15:09] VITALS: BP 114/42; PULSE 81; O2SAT 97
[2016-10-15] MEDS ORDERED: OXYCODONE/ACETAMINOPHEN 5-325 TAB PO STA (15:29)
[2016-10-15] MEDS ORDERED: VANCOMYCIN TROUGH SCH (15:30)
[2016-10-15 15:45] VITALS: BP 95/59; PULSE 79; TEMP 36.5; O2SAT 96
--- NOTE | 2016-10-15 17:00 | Pharmacy Progress Note ---
Pharmacy Abx Dose Short Note Date of Service Oct 15, 2016. Assessment & Plan Pt receiving Vanco and Rocephin for suspected bone and joint infxn. This evenings lvl prior to Css came back at 12.0mcg/mL. Difficult to extrapolate what css will be. Will continue with current regimen. Per Ortho notes there is a low suspicion for infxn. Will order a trough for 10/17 @0330 to ensure pt is achieving therapeutic concentrations. Pharmacy will continue to follow and will adjust dose/frequency as necessary. Thank you.
[2016-10-15] MEDS: SIMVASTATIN 40 MG TAB PO SCH (21:02)
[2016-10-15 23:25] VITALS: BP 156/54; PULSE 72; TEMP 36.8; O2SAT 96
[2016-10-15] MEDS: MAGNESIUM HYDROXIDE SUSP 30 ML UDC PO PRN (23:37)
[2016-10-16 00:29] VITALS: BP 150/56
[2016-10-16] MEDS: LEVOTHYROXINE 100 MCG TAB PO SCH (05:47)
[2016-10-16] MEDS: HEPARIN SOD 5000 UNIT/0.5 ML CARP SQ SCH ×2 (05:48→14:00)
[2016-10-16 07:37] VITALS: BP 112/68; PULSE 69; TEMP 37; O2SAT 95
[2016-10-16 07:41] VITALS: O2SAT 95
[2016-10-16 07:48] LABS: CREATININE 0.55 mg/dl (0.60-1.20)
--- NOTE | 2016-10-16 08:58 | Discharge Instructions ---
Discharge Instructions Date of Service Oct 16, 2016. Admission Reason for Admission: FEVER Discharge Discharge Diagnosis / Problem: fall Discharge Goals Goal(s): Decrease discomfort Activity Recommendations Activity Limitations: resume your previous activity . Instructions / Follow-Up Instructions / Follow-Up You were admitted after you had a fall on 10/10 after having a back surgery on . He was transferred from [facility] due to concerns of back injury due to fall and a fever. He was started on antibiotics and was monitored for any infection but did not have any documented fever during her stay at [facility]. The antibiotics have since been discontinued. On admission, you had problems with constipation which has been resolved. You were also seen by Dr. Hussein , had x-rays of your spine which did not show any displacement of the hardware. Your fall was likely due to grogginess from your pain medication. - You may use Tylenol or ibuprofen or Advil along with heat packs to help with pain. - If you're in extreme pain you may use very low doses of Percocet that has already been prescribed to you. Please follow up with the orthopedic office for removal of your candi as scheduled Constipation: - Continue MiraLAX as needed Hypothyroidism: Continue Synthroid GERD: -Continue Protonix COPD/ history of smoking -You may use albuterol as needed - Smoking cessation counseling Please follow up with orthopedic surgery as scheduled for removal of candi. Please follow with PCP in about a week Current Hospital Diet Patient's current hospital diet: Regular Diet Discharge Diet Recommended Diet: Regular Diet Pending Studies Studies pending at discharge: no Medical Emergencies . Who to Call and When: Medical Emergencies: If at any time you feel your situation is an emergency, please call 911 immediately. . Non-Emergent Contact Non-Emergency issues call your: Primary Care Provider . . "Provider Documentation" section prepared by Eleni Rasheed. . Lead C Developer Recommendations Lead C Developer Recommendations: She reports minimal current LBP. No leg pain. Her xrays show stable hardware. On examination the wound is benign, clean without redness. Neuro exam is stable in LEs. I recommend PT, limited narcotics use, and rehab consideration. VTE Core Measure Inpt VTE Proph given/why not?: Unfractionated heparin SQ
[2016-10-16] MEDS: SENNA 8.6 MG TAB PO SCH (09:00)
[2016-10-16] MEDS: PANTOprazole SOD 40 MG TAB PO SCH (09:06)
[2016-10-16] MEDS: ESCITALOPRAM OXALATE 10 MG TAB PO SCH (09:06)
[2016-10-16] MEDS: ASPIRIN 325 MG ECTAB PO SCH (09:06)
[2016-10-16] MEDS: FLUTICASONE/SALMETEROL 250/50 (ADVAIR) 14 PUFF/1 INHALER INH SCH (09:07)
--- NOTE | 2016-10-16 14:54 | Death Summary ---
Summary of Admission Date Oct 13, 2016 at 15:34 Date & Time of Oct 16, 2016.
--- NOTE | 2016-10-16 14:55 | Discharge Summary ---
Discharge Summary Date of Service Oct 16, 2016. (Eleni Rasheed MD) Discharge Summary Admission Date: Oct 13, 2016 at 15:34 Discharge Date: Oct 16, 2016 Discharge Disposition: Home Principal Diagnosis: Fall s/p lumbar spine fusion Immunizations: Have You Had Influenza Vaccine: Unknown History of Tetanus Vaccine?: Unknown History of Pneumococcal: Unknown History of Hepatitis B Vaccine: Unknown Consultations: Orthopedics (Eleni Rasheed MD) Principal Diagnosis: Intractible pain (Heath Carnes MD) Medication Reconciliation Continued Medications: Aspirin (Aspirin Ec) 325 Mg Tab 325 MG PO QAM Cyanocobalamin (Vitamin B-12 Inj) Inj 1 ML IM MONTHLY, #1 VIAL Escitalopram (Lexapro) 10 Mg Tab 10 MG PO QAM, TAB Fluticasone Prop/Salmeterol (Advair Diskus 250/50 60 Dose) 1 Ea Aerp 1 PUFF INH BID, INHALER Levothyroxine Sodium (Levothyroxine Sodium) 100 Mcg Tab 1 TAB PO QAM for 90 Days, #90 TAB 3 Refills Oxycodone HCl (Oxycodone HCl) 5 Mg Tab 5-10 MG PO Q4H PRN for Moderate - severe pain, #90 TAB Pantoprazole (Protonix) 40 Mg Tab 40 MG PO QAM, #30 Simvastatin (Zocor) 40 Mg Tab 40 MG PO QPM, TAB Zolpidem Tartrate (Ambien) 10 Mg Tab 10 MG PO HS PRN for Sleep, TAB Discharge Exam Doing well. requests to go home and does not want to go to acute rehab hospital Review of Systems: Constitutional: No fever, No chills Eyes: No worsening of vision ENT: No hearing loss Respiratory: No cough, No sputum Cardiovascular: No chest pain Abdomen: No pain, No nausea, No vomiting Musculoskeletal: + joint pain (back pain is improved) Genitourinary - Female: No dysuria, No urinary frequency Genitourinary - Male: No hematuria Neurologic: No memory loss Psychiatric: No depression symptoms Endocrine: No fatigue Physical Exam: General Appearance: WD/WN, no apparent distress Eyes: normal inspection ENT: normal ENT inspection, hearing grossly normal Neck: supple Respiratory/Chest: chest non-tender, lungs clear, + wheezing (scattered wheezes) Cardiovascular: regular rate, rhythm Abdomen / GI: normal bowel sounds, soft Extremities: normal inspection Neurologic/Psychiatric: alert, normal mood/affect, oriented x 3 Skin: normal color (Eleni Rasheed MD) Hospital Course 66 y/o F Hx Hypothyroidism, COPD, spinal degenerative disease. Pt underwent posterior lumbar decompression and fusion 10/08/16. She was D/Cd on 10/09 and states that due to narcotic use she had fallen out of bed on 10/10. She has had progressive pain since that time and feared that she had reinjured her back. On 10/11 she developed fevers and then checked into [facility] one day later. A fever of up to 101 was confirmed at [facility] although no source was identified. A CT fo the lumbar spine did not display and fluid collections or other evidence of infection. She denies a SOB, a productive cough, diarrhea or headache. She has had some dysuria however her UA was negative. She has and elevated CRP and persistent low-grade fevers. She was therefore transferred to [facility] for further evaluation and assessment by her surgeon. She complains only of back pain at the time of admission. She is able to mobilize independently. Fall likely secondary to Grogginess by pain medication Lumbar x-ray : 1. Prior laminectomy at L3-L4 with posterior interbody salome and screw fixation at L3-L5. 2. 3 mm anterolisthesis of L4 on L5 appears unchanged from comparison CT. - Orthopedics was consulted - pain control with tylenol/ibuprofen/localized heat application - PT/OT ordered- recommend inpatient rehab- [facility] but patient refused inpatient rehabilitation and stated that she has home health and requested to go home Constipation: Likely secondary to post surgical ileus/ narcotic pain med use KUB: Suspected mild ileus. -Bowel regimen was initiated with MiraLAX, mag citrate and she had a bowel movement the next day Febrile illness: Was noted to have a fever while at [facility] but during her stay at [facility] she had been afebrile with no leukocytosis - CXR and UA done at outside hospital unremarkable -Was initially started on vancomycin and Rocephin which were later discontinued Hypothyroidism: Continue Synthroid GERD: -Continue Protonix COPD/ history of smoking - Incentive spirometry - albuterol as needed - Smoking cessation counseling Recommended to follow-up with Dr. Vallecillo's office for staple removal as scheduled This includes examination of the patient, discharge planning, medication reconciliation, and communication with other providers. (Eleni Rasheed MD) Total Time Spent: Less than 30 minutes (Heath Carnes MD) Discharge Instructions Please refer to the electronic Patient Visit Report (Discharge Instructions) for additional information. (Eleni Rasheed MD) Follow-Up Follow-up with orthopedics as scheduled (Eleni Rasheed MD) History Resident Physician Supervision Note: I was present with Dr. Rasheed during the history and exam. I discussed the case with the resident and agree with the findings and plan as documented in the note. Any exceptions or clarifications are listed here. Pt resting in chair at bedside, pain significantly improved from previous. Presently refuses any narcotic pain medication and states that she will be fine with tylenol at home. BM x 2 today, loose brown with resolution of abdominal bloating/pain. (Heath Carnes MD) General Appearance: WD/WN, no apparent distress Respiratory: chest non-tender, lungs clear, normal breath sounds, no respiratory distress Cardiovascular: normal peripheral pulses, regular rate, rhythm, no murmur Gastrointestinal: normal bowel sounds, non tender, soft, no organomegaly (Heath Carnes MD) Assessment/Plan 66 y/o female h/o COPD, hypothyroidism w/ recent lumbar decompression/fusion on 10.08 now w/ fever and pain Constipation - multifactorial 2/2 surgical intervention, narcotic medication, chronic underlying - resolved, continue bowel regimen PRN Febrile illness w/o source - no apparent nidus of infection on evaluation, no WBC count, asymptomatic/afebrile x 24 hours off abx Fall and lower back pain - ortho aware and recommendations appreciated - pain control w/ tylenol - refusing inpt PT stay, will do OP PT Hypothyroidism - continue synthroid GERD - continue omeprazole COPD hx - albuterol PRN, encourage IS use FULL CODE (Heath Carnes MD) Resident Tracking Resident Involvement: Resident Care Provided Care Provided: Adult Hospital Medicine (Eleni Rasheed MD)
[2016-10-16 15:13] VITALS: BP 112/68; PULSE 69; TEMP 37; O2SAT 95
[2016-10-17] MEDS ORDERED: VANCOMYCIN TROUGH ONE (03:30)
== END 2016-10-16 16:09 | disposition home health service (06) | DRG 864 ==
LOC: C.MSW 15:34
PROVIDERS: ADMIT Internal Medicine; ATTEND Family Medicine
DX: R50.82 Postprocedural fever (principal); K56.7 Ileus, unspecified; M54.5 Low back pain; R41.82 Altered mental status, unspecified; T40.605A Adverse effect of unspecified narcotics, initial encounter; K59.03 Drug induced constipation; E03.9 Hypothyroidism, unspecified; J44.9 Chronic obstructive pulmonary disease, unspecified; Z98.890 Other specified postprocedural states; Z98.1 Arthrodesis status; F17.200 Nicotine dependence, unspecified, uncomplicated; K21.9 Gastro-esophageal reflux disease without esophagitis; Z88.2 Allergy status to sulfonamides; Z79.82 Long term (current) use of aspirin; Y92.013 Bedroom of single-family (private) house as the place of occurrence of the external cause